=== PATIENT | female | born 1930 | race Caucasian/White ===

== ENCOUNTER 2017-11-10 20:19 | Inpatient (IN) | payer MEDICARE ==
--- NOTE | 2017-11-10 21:07 | RAD ---
CHEST ONE VIEW 11/10/17 HISTORY: Elevated troponin. COMPARISON: Radiograph of 11/02/17. FINDINGS: Chronic linear opacity is present as well as increased extra pleural density in the left hemithorax, similar. Findings are similar. Dense mitral annular calcifications. Cardiac silhouette is mildly enlarged. No pneumothorax. IMPRESSION: No significant change. POS: [facility]
[2017-11-10 23:33] LABS: Troponin I 0.042 ng/mL (< 0.028)
[2017-11-11 01:14] LABS: Bilirubin Negative (Negative); Blood, Urine Trace (Negative); Clarity CLEAR (Clear); Glucose, Urine (Dipstick) Negative (Negative); Leukocyte Negative (Negative); Nitrite Negative (Negative); Protein, Urine (Dipstick) Negative (Neg-Trace); Urobilinogen 0.2 mg/dL (0.2-1.0); pH, Urine 5.5 (5.0-9.0)
[2017-11-11 01:17] LABS: Bacteria/HPF None Seen HPF (None Seen); Hyaline Casts/LPF 0-3 HYALINE CAST LPF (0-3 Hyaline); RBC/HPF 0-3 HPF (0-3); Squamous Epithelial 0-3 HPF (0-3)
[2017-11-11 02:33] LABS: Troponin I 0.043 ng/mL (< 0.028)
[2017-11-11 05:34] LABS: Troponin I 0.047 ng/mL (< 0.028)
[2017-11-11] MEDS ORDERED: Meropenem 1 GM in Sodium Chloride 0.9% 100 ML IVPB SCH (10:00)
[2017-11-11] MEDS ORDERED: Sodium Chloride 0.9% 1,000 ML IV SCH (10:00)
[2017-11-11] MEDS ORDERED: Acetaminophen 325 MG TAB PO PRN (10:04)
[2017-11-11] MEDS ORDERED: MEROPENEM IVPB PRN (10:22)
[2017-11-11] MEDS: Dextrose 5 % And 0.9 % NaCl 1,000 ML IV SCH ×2 (11:37→21:07)
[2017-11-11] MEDS ORDERED: Aspirin 325 MG TAB PO SCH (13:30)
[2017-11-11 16:27] VITALS: BMI 22.1
[2017-11-11] MEDS ORDERED: Prevnar 13-Val Conj/PF 0.5 ML SYRINGE IM ONE (17:30)
[2017-11-11] MEDS: Meropenem 500 MG in Sodium Chloride 0.9% 100 ML IVPB SCH (21:05)
--- NOTE | 2017-11-11 21:13 | HP ---
PRIMARY CARE PHYSICIAN: Kinga Torres NP. CHIEF COMPLAINT: Generalized weakness. HISTORY OF PRESENT ILLNESS: Patient is a very pleasant 87-year-old female who lives alone, who prese nts to the hospital with complaints of worsening confusion and weakness. Patient's family is at the bedside states that last week, the patient was not being herself and some confusion was noted. So, t he patient was taken to [place] ER. At that time, her urine was checked and she was given a anyi t of Rocephin and was sent home with Levaquin antibiotics. Per family, patient's condition continued to progress. Patient has been falling more frequently than normal. Patient normally uses a walker or holds on to furniture around her home to walk; however, since last week, she has been falling more often and has been very weak to even get up to go to the bathroom. Family also mentioned that the p atient had a low grade fever of around 100. Denies any chills. Patient denies any fevers or chills. Denies any diarrhea or abdominal pain, any nausea or vomiting. PAST MEDICAL HISTORY: 1. Type 2 diabetes, on insulin. 2. Hypertension. 3. Glaucoma. 4. Hyperlipidemia. 5. Dementia. 6. Coronary artery disease status post coronary artery bypass graft. PAST SURGICAL HISTORY: Bypass in 2007, ORIF of the greater tuberosity in 2009, rotator cuff tear rep air in 2009. FAMILY HISTORY: According to her family member, her parents are , unknown cause. However, s he does have a sister who does not have any medical issues. SOCIAL HISTORY: The patient lives alone, has a lot of family support. Denies any alcohol, drug use or tobacco, smoking. ALLERGIES: She has no known drug allergies. MEDICATIONS: Unable to obtain since they do not have a list with them. PHYSICAL EXAMINATION: VITAL SIGNS: Temperature of 98.1, respirations of 16, pulse of 86, her blood pressure in the room wa s 98/66. GENERAL: She is awake, alert, oriented to self only. CARDIOVASCULAR: S1, S2 present. Regular rate and rhythm. No murmurs, rubs or gallops noted. LUNGS: Clear upon auscultation. No rhonchi or wheezes noted. ABDOMEN: Soft, nontender. Bowel sounds are present x2. Hepatomegaly and splenomegaly felt. EXTREMITIES: No lower extremity edema. Pedal pulses are present x2. SKIN: Warm to touch. NEUROLOGIC: Patient is awake, alert, oriented only to self. No focal neurological deficit noted. LABORATORY DATA: As the following: WBC is 4.1, hemoglobin of 11.2, hematocrit of 34.3, platelets of 167. Chemistry: She has sodium of 140, potassium of 4.4, BUN of 43, creatinine of 1.47. Troponins of 0.048 and 0.042. TSH is 0.914 and magnesium is 1.4. Patient did have a chest x-ray which indica екатерина no acute abnormalities. ASSESSMENT AND PLAN: The patient is a very pleasant 87-year-old female who presented to the hospital with complaints of generalized weakness and worsening confusion. 1. Sepsis. The patient is hypotensive. She is also leukopenic. Her urine culture from 11/02/2017 at [place] indicated E. coli which is ESBL positive and Levaquin is resistant to it. We will st art patient on meropenem. We will also start the patient on some gentle hydration. Per ER nurse, th e patient received 500 mL bolus of IV fluids. We will give another liter of normal saline. Blood cu ltures have already been drawn. We will also check an echocardiogram. 2. Acute kidney injury. The patient's baseline creatinine is always around normal at 0.97-1.04. Th is most likely is prerenal. We will continue IV hydration. We will also bladder scan patient to moses e sure that she does not have any residual urine left since patient is incontinent. 3. Elevated troponins. This could just be demand ischemia related. We will check an echocardiogram . The patient is not complaining of any chest pain. 4. Worsening confusion. The patient does have a baseline history of dementia, worsening confusion, most likely secondary to the urinary tract infection. 5. Diabetes. I will put the patient on sliding scale insulin and check Accu-Cheks a.c. and at bedti me. 6. Deep venous thrombosis prophylaxis. We will put patient on subcu heparin.
[2017-11-12 06:08] LABS: Anion Gap 6 mmol/L (10-20); BUN (Urea Nitrogen) 25 mg/dL (9.8-20.1); Calc. Creatinine Clearance 28 mL/min (70-130); Calcium 8.2 mg/dL (7.8-10.44); Carbon Dioxide 21 mmol/L (23-31); Chloride 111 mmol/L (98-107); Estimated GFR-MDRD 43; Glucose 235 mg/dL (83-110); Potassium 4.3 mmol/L (3.5-5.1); Sodium 134 mmol/L (136-145)
[2017-11-12 06:56] LABS: Hemoglobin 10.1 g/dL (12.0-16.0); Lymphocytes 55 % (21-51); MDiff Complete? YES; Mean Corpuscular HGB CONC 33.6 g/dL (32.0-36.0); Mean Corpuscular Hemoglobin 29.9 pg (27.0-31.0); Mean Corpuscular Volume 89.2 fl (81.0-99.0); Mean Platelet Volume 6.5 fL (7.4-10.4); Monocytes 6 % (0-10); Neutrophil 38 % (42-75); PLT Morphology Comment Appears Adequate; Platelet Count 135 thou/uL (130-400); RBC Distribution Width 12.2 % (11.5-14.5); RBC Morphology Normal; Reactive Lymphocytes 1 % (0-10); Red Blood Cell (RBC) Count 3.37 mill/uL (4.20-5.40); White Blood Cell (WBC) Count 4.6 thou/uL (4.8-10.8)
[2017-11-12] MEDS: Enoxaparin Sodium 30 MG/0.3 ML SYRINGE SC SCH (08:44)
[2017-11-12] MEDS: Sodium Chloride 0.9% 1,000 ML IV SCH (08:50)
[2017-11-12] MEDS: Dextrose 5 % And 0.9 % NaCl 1,000 ML IV SCH (08:52)
[2017-11-12] MEDS ORDERED: Insulin Glargine 5 UNITS in Pre-Filled Syringe 1 EACH SC SCH ×2 (09:00→21:00)
[2017-11-12] MEDS: Meropenem 500 MG in Sodium Chloride 0.9% 100 ML IVPB SCH (11:32)
[2017-11-12] MEDS: HumaLOG 300 UNITS/3 ML VIAL SC PRN (12:27)
--- NOTE | 2017-11-12 12:43 | PDOC.PN ---
- Subjective Encounter Start Date: 11/12/17 Encounter Start Time: 09:00 Subjective: pt up in bed more awake today - Objective Vital Signs & Weight: Vital Signs (12 hours) Temp Pulse Resp BP Pulse Ox 11/12/17 11:36 97.5 F L 68 16 142/65 H 98 11/12/17 08:00 97.1 F L 73 18 137/66 97 11/12/17 04:00 96.8 F L 62 17 139/66 97 Weight Admit Weight 117 lb Weight 117 lb 1.6 oz Result Diagrams: 11/12/17 05:41 11/12/17 05:41 Additional Labs: Accuchecks 11/12/17 11/12/17 11/11/17 12:09 06:20 21:09 POC Glucose 231 H 245 H 289 H 11/11/17 16:59 POC Glucose 218 H Dx/Plan - Plan 1) sepsis 2) uti 3) carl 4) dm type 2 plan: Pt's urine on 11/02 is esbl positive. pt on meropenem. ID consulted. pt's creatinine is improving. lantus bid added and moderate sliding scale added. PT to evaluate pt. * . Review of Systems - Review of Systems Eyes: negative: Pain, Vision Change, Conjunctivae Inflammation, Eyelid Inflammation, Redness, Other ENT: negative: Ear Pain, Ear Discharge, Nose Pain, Nose Discharge, Nose Congestion, Mouth Pain, Mouth Swelling, Throat Pain, Throat Swelling, Other Respiratory: negative: Cough, Dry, Shortness of Breath, Hemoptysis, SOB with Excertion, Pleuritic Pain, Sputum, Wheezing Cardiovascular: negative: chest pain, palpitations, orthopnea, paroxysmal nocturnal dyspnea, edema, light headedness, other Gastrointestinal: negative: Nausea, Vomiting, Abdominal Pain, Diarrhea, Constipation, Melena, Hematochezia, Other Genitourinary: negative: Dysuria, Frequency, Incontinence, Hematuria, Retention , Other Musculoskeletal: negative: Neck Pain, Shoulder Pain, Arm Pain, Back Pain, Hand Pain, Leg Pain, Foot Pain, Other - Medications/Allergies Allergies/Adverse Reactions: Allergies Allergy/AdvReac Type Severity Reaction Status Date / Time No Known Drug Allergies Allergy Verified 04/25/15 09:45 Medications: Current Medications Acetaminophen (Tylenol) 650 mg PO Q4H PRN PRN Reason: Headache/Fever or Pain Enoxaparin Sodium (Lovenox) 30 mg SC 0900 [facility] Last Admin: 11/12/17 08:44 Dose: 30 mg Insulin Glargine 5 units/ (Miscellaneous Medication) 0.05 mls @ 0 mls/hr SC QAM [facility] Last Admin: 11/12/17 08:44 Dose: 0.05 mls Insulin Glargine 5 units/ (Miscellaneous Medication) 0.05 mls @ 0 mls/hr SC HS [facility] Sodium Chloride (Normal Saline 0.9%) 1,000 mls @ 50 mls/hr IV .Q20H [facility] Last Admin: 11/12/17 08:50 Dose: 1,000 mls Meropenem 1 gm/ Sodium (Chloride) 100 mls @ 200 mls/hr IVPB 1200,2359 [facility] Insulin Human Lispro (Humalog) 0 units SC .MODERATE SLIDING SC PRN PRN Reason: Moderate Correctional Scale Last Admin: 11/12/17 12:27 Dose: 4 unit Miscellaneous Medication (Pharmacy To Dose) 1 each IVPB PRN PRN PRN Reason: Pharmacy to dose Sodium Chloride (Flush - Normal Saline) 10 ml IVF Q12HR [facility] Last Admin: 11/12/17 08:44 Dose: Not Given Sodium Chloride (Flush - Normal Saline) 10 ml IVF PRN PRN PRN Reason: Saline Flush
--- NOTE | 2017-11-12 16:03 | CT ---
CT THORAX WITHOUT IV CONTRAST CT ABDOMEN AND PELVIS WITHOUT IV CONTRAST: DATE: 11/12/17. HISTORY: Abnormal lung exam, normal chest x-ray. COMPARISON: None available. FINDINGS: CT THORAX: There are postsurgical changes related to CABG. Dense vascular calcifications are seen in the patterson ry arteries as well as involving the thoracic aorta. Dense calcifications are seen involving the vamsi ral valve annulus. There is a tiny amount of pleural thickening versus tiny pleural effusions dependently within the bre gs bilaterally with atelectasis present at each lung base. There does appear to be generalized volum e loss in the left hemithorax compared to the right. Lack of intravenous contrast limits evaluation of the vascular structures and the mediastinum. No de finite enlarged lymph nodes are seen by CT size criteria. There is deformity involving the left femoral head and neck region which may be related to a remote f racture and deformity. Area of sclerosis is seen involving the superomedial aspect of the humeral he ad which is nonspecific. On the axial images, there is a question of interdigitated margins consiste nt with lucent area centrally. This could potentially represent a large bone island, but on the mely nal images this does not have the appearance of a bone island. Osteonecrosis in this region cannot b e entirely excluded. CT ABDOMEN AND PELVIS: The liver, spleen, pancreas, bilateral adrenal glands, and kidneys as well as urinary bladder demonst rate a grossly normal nonenhanced CT appearance. There is a large coarse calcification seen involving the posterior aspect of the uterus measuring 3 c m likely attributable to calcified uterine fibroid. There is a small amount of moderate amount of retained fecal material seen throughout the colon sugge sting constipation. Loops of small bowel are normal in caliber. There is suggested thickening involving the region of the pylorus of the stomach which could be rela екатерина to peristalsis, but thickening related to ulcer cannot be entirely excluded. There is a small ro unded fat density focus seen in this area of apparent thickening which represent a small lipoma measu ring 1 cm. Dense vascular calcifications are seen in the abdominal aorta involving the iliac arteries. There is bi-lobed aneurysmal dilatation of the abdominal aorta with the greatest dimensions measuring 3.6 cm x 3.3 cm. Linear calcification is seen involving the infrarenal abdominal aorta which may represent either calcification secondary to an eccentric atherosclerotic plaque or calcification of aortic diss ection. The appendix is visualized and normal in caliber. No free fluid or fluid collection is seen in the abdomen or pelvis. No definite enlarged lymph nodes are seen by CT size criteria. A wedge-shaped compression fracture of the L1 vertebral body is visualized. The exact age of this fr acture is indeterminate. There is approximately 30-40% loss of height anteriorly. IMPRESSION: 1. Limited examination due to lack of intravenous contrast, but no definite acute findings are seen in the abdomen or pelvis. 2. Area of thickening in the region of the pylorus. This may be attributable to peristalsis, but th ickening secondary to other etiologies cannot be entirely excluded. Followup evaluation with either direct visualization or upper GI may be helpful for further evaluation of this area of thickening. I n the region of thickening, there is a small fat density structure measuring 1 cm which may represent a small lipoma. 3. Bi-lobed infrarenal abdominal aortic aneurysm with dense vascular calcification seen throughout t he thoracic and abdominal aorta as well as involving the coronary arteries. 4. Either peripheral calcification involving an eccentric plaque versus calcified aortic dissection involving the infrarenal abdominal aorta. 5. No renal or ureteral calculi are seen bilaterally. 6. Constipation. 7. Indeterminate age compression fracture of L1 vertebral body. 8. A tiny amount of pleural thickening versus pleural effusions dependent portions of the lungs bila terally. POS: [facility]
--- NOTE | 2017-11-12 20:53 | CON ---
DATE OF CONSULTATION: 11/12/2017 REASON FOR CONSULTATION: Change in mental status and possible urinary tract infection. HISTORY OF PRESENT ILLNESS: An 87-year-old who has a history of hypertension and type 2 diabetes mellitus. In March 2015, she was admitted with change in mental status. The patient had an MRI of the head, which was not remarkable. The change in mental status, resolved. During that visit, she had an E. coli retrieved from urine cultures. Urinalysis showed 21-50 WBCs. Her clinical findings were ascribed to a urinary tract infection and she was dismissed on ciprofloxacin, aspirin, Lipitor, metformin, losartan, and mirtazapine. In 2016, she presented with altered mental status and weakness. This time, she again was identified with positive urine culture with E. coli and Klebsiella pneumonia shabazz susceptible. Repeat urinalysis with 21-50 WBCs. The patient was discharged on Bactrim for 2 days. This time she presents with a confusional state again, on arrival to the emergency room, her review of systems was negative, although she denied any other symptoms. Her cognitive function is such that this finding somewhat questionable meaning. She suddenly denied urinary tract symptoms and not had any fever. Initial vital signs with a BP 130 /70, temperature 98, pulse 83, respirations 19. A chest x-ray with linear opacity, extrapleural density in the left hemithorax. INITIAL LABORATORY DATA: This time with a white cell count 4.6, hemoglobin 10.1 , MCV 89, platelets 135,000 with 38% neutrophils and 55% lymphocytes. Sodium 134, creatinine 1.18, chloride 111, BUN 25. Urinalysis with 4-6 WBCs. Urine culture from 11/02/2017 with E. coli which had an ESBL phenotype. The current urine culture thus far is no growth. She had been given levofloxacin and Rocephin in [place] ER about a week before this visit. Of note, the E. coli isolate was resistant to both of the antimicrobials administered. Currently, Ms. Newell is awake. She wants awake. She knows she is in the hospital in [place]. She did not know the year though, she thought it was 1987. She wants to go home. REVIEW OF SYSTEMS: Denies any headaches, visual symptoms, sore throat, aphasia , odynophagia, dysphagia, no dyspnea, cough or sputum production, no abdominal pain or diarrhea. No genitourinary symptoms, no joint symptoms. Again, the review of system accuracy is off limited value because of her cognitive issues. PAST MEDICAL HISTORY: Type 2 diabetes, hypertension, hyperlipidemia, dementia, coronary artery disease, recurrent positive urine cultures, which have been treated, although patient did not have symptoms other than change in mental status. PAST SURGICAL HISTORY: Bypass graft surgery, ORIF, rotator cuff repair. FAMILY HISTORY: Noncontributory. SOCIAL HISTORY: Lives alone with some family support. Never smoker. ALLERGIES: None. CURRENT MEDICATIONS: Tylenol, enoxaparin, insulin, meropenem. She has received meropenem started yesterday on admission. PHYSICAL EXAMINATION: VITAL SIGNS: Revealed T-max 97.5, blood pressure 140/65, pulse 68, respirations 16, and O2 sat 98%. SKIN: With no areas of skin breakdown. Peripheral IV access. No lymphadenopathy. HEENT: Ocular movements conjugate. Oral cavity with no abnormalities seen except for missing teeth. NECK: Supple, no jugular distention. LUNGS: Inspiratory crackles at the bases. HEART: S1, S2, regular rate. No S3, S4. ABDOMEN: Soft, without distention, no tenderness. EXTREMITIES: No joint inflammatory activity and pulses 1+ in dorsalis pedis. LABORATORY DATA: The latest labs demonstrate a white cell count as noted above as the only labs obtained thus far. ASSESSMENT: 1. Dementia. 2. Change in mental status. 3. Positive urine culture. DISCUSSION: It is not clear to me that the urinary findings are related to the patient's clinical manifestations. The mental status changes resolved promptly and patient this time has no WBCs in the urinalysis and urine culture thus far negative on arrival. I would advise discontinuation of antimicrobial therapy. She does have abnormal lung examination. Sometimes x-rays may miss the findings , we will order a CT of her chest without contrast and a CT of abdomen and pelvis stone protocol. Check a respiratory virus PCR panel. [facility]
[2017-11-12] MEDS ORDERED: Lorazepam 2 MG/ML VIAL IM SCH (22:30)
[2017-11-12] MEDS ORDERED: Meropenem 1 GM in Sodium Chloride 0.9% 100 ML IVPB SCH (23:59)
[2017-11-13] MEDS: Sodium Chloride 0.9% 1,000 ML IV SCH (07:47)
[2017-11-13] MEDS: Enoxaparin Sodium 30 MG/0.3 ML SYRINGE SC SCH (09:45)
[2017-11-13] MEDS ORDERED: Mirtazapine 15 MG TAB PO PRN (10:37)
[2017-11-13 10:49] LABS: Anion Gap 11 mmol/L (10-20); BUN (Urea Nitrogen) 15 mg/dL (9.8-20.1); Calc. Creatinine Clearance 32 mL/min (70-130); Calcium 9.7 mg/dL (7.8-10.44); Carbon Dioxide 24 mmol/L (23-31); Chloride 106 mmol/L (98-107); Estimated GFR-MDRD 52; Glucose 221 mg/dL (83-110); Magnesium 1.6 mg/dL (1.6-2.6); Potassium 4.2 mmol/L (3.5-5.1); Sodium 137 mmol/L (136-145)
[2017-11-13] MEDS: Insulin Glargine 10 UNITS in Pre-Filled Syringe 1 EACH SC SCH (13:33)
[2017-11-13] MEDS: Losartan 25 MG TAB PO SCH (13:34)
[2017-11-13] MEDS: Metoprolol Tartrate 25 MG TAB PO SCH (13:34)
--- NOTE | 2017-11-13 14:54 | PDOC.PN ---
- Subjective Encounter Start Date: 11/13/17 Encounter Start Time: 09:00 Subjective: pt up in bed very drowsy easily aroused - Objective Vital Signs & Weight: Vital Signs (12 hours) Temp Pulse Resp BP Pulse Ox 11/13/17 12:58 98.9 F 85 17 133/65 95 11/13/17 08:49 98.6 F 86 18 150/76 H 96 11/13/17 03:09 97.4 F L 92 20 179/89 H 97 Weight Admit Weight 117 lb Weight 112 lb 4.8 oz I&O: 11/12/17 11/13/17 11/14/17 06:59 06:59 06:59 Intake Total 1760 Balance 1760 Result Diagrams: 11/12/17 05:41 11/13/17 08:22 Additional Labs: Accuchecks 11/13/17 11/13/17 11/12/17 11:19 06:08 20:51 POC Glucose 192 H 229 H 270 H 11/12/17 16:46 POC Glucose 197 H Phys Exam - Physical Examination HEENT: PERRLA, moist MMs, sclera anicteric, TM's clear, oral pharynx no lesions , 2+ tonsils Neck: no nodes, no JVD, supple, full ROM Respiratory: no wheezing, no rales, no rhonchi, wheezing present, clear to auscultation bilateral Cardiovascular: RRR, no significant murmur, no rub, gallop, irregular Gastrointestinal: soft, non-tender, no distention, positive bowel sounds Deviation from normal: drowsy, arousable Dx/Plan - Plan 1) sepsis 2) elevated trops 3) dementia 4) dm type 2 5)carl resolved plan: Pt's urine on 11/02 is esbl positive. pt on meropenem. ID consulted. pt's creatinine is improving. lantus bid added and moderate sliding scale added. PT to evaluate pt. 11/13 pt's repeat cx on levaquin negative. pt had ct abd/pel ordered by ID no significant etiology of her weakness and worsening confusion. pt has significant calcification noted on her ct scan. possible cardiac cause of her weakness given her hx of CABG and mild elevated trops. Echo ordered but was cancelled by the tech since pt was not cooperative. I was not notified about this. Echo reordered today. cardiology also consulted. updated pt's daughter who wants pt to go to rehab. Pt will not need abx. bi lobed infrarenal aneurysm. will also consult palliative care. Pt most likely has worsening dementia will not be able to live alone. Review of Systems - Review of Systems Other: pt very drowsy - Medications/Allergies Allergies/Adverse Reactions: Allergies Allergy/AdvReac Type Severity Reaction Status Date / Time No Known Drug Allergies Allergy Verified 04/25/15 09:45 Medications: Current Medications Acetaminophen (Tylenol) 650 mg PO Q4H PRN PRN Reason: Headache/Fever or Pain Enoxaparin Sodium (Lovenox) 30 mg SC 0900 [facility] Last Admin: 11/13/17 09:45 Dose: 30 mg Insulin Glargine 10 units/ (Miscellaneous Medication) 0.1 mls @ 0 mls/hr SC BID [facility] Last Admin: 11/13/17 13:33 Dose: Not Given Insulin Human Lispro (Humalog) 0 units SC .MODERATE SLIDING SC PRN PRN Reason: Moderate Correctional Scale Last Admin: 11/12/17 12:27 Dose: 4 unit Losartan Potassium (Cozaar) 25 mg PO DAILY [facility] Last Admin: 11/13/17 13:34 Dose: Not Given Metoprolol Tartrate (Lopressor) 25 mg PO BID [facility] Last Admin: 11/13/17 13:34 Dose: Not Given Mirtazapine (Remeron) 15 mg PO HS PRN PRN Reason: Anxiety/Sleep/Spasm Quetiapine Fumarate (Seroquel) 25 mg PO HS PRN PRN Reason: Agitation Sodium Chloride (Flush - Normal Saline) 10 ml IVF Q12HR [facility] Last Admin: 11/13/17 09:45 Dose: 10 ml Sodium Chloride (Flush - Normal Saline) 10 ml IVF PRN PRN PRN Reason: Saline Flush
[2017-11-13] MEDS ORDERED: Mirtazapine 15 MG TAB PO SCH (21:00)
--- NOTE | 2017-11-14 01:35 | CON ---
Silke Curry, nurse practitioner of Dr. Mitchell who is a technology infusion specialist. ROOM: 259 DATE OF CONSULTATION: 11/13/2017 PRIMARY CARE PHYSICIAN: Kinga East NP. PRIMARY PROTOCOL OFFICER: Yana Mitchell MD REFERRING PHYSICIAN: Navya Rivera MD REASON FOR CARDIOLOGY CONSULTATION: Weakness and elevated troponin. HISTORY OF PRESENT ILLNESS: Ms. Newell is an 87-year-old female with a significant medica l history of coronary artery disease, status post coronary artery bypass graft x4 in 2007, hypertensi on, diabetes type 2, dementia, and frequent recurrent UTI. On this moment, the patient was feeling v dago drowsy and unable to follow commands or answer any questions because the patient was so agitated and the patient was given Ativan last night, which made the patient continued to have drowsiness arou nd this time. So, the patient's information was obtained from the patient's past medical records and from the nurse today. The patient was brought to the emergency department by the patient's daughter who noticed the patient is more confused than usual. The patient has a history of dementia; however , she is living by herself, taking care of herself. According to the daughter, the patient is gettin g weaker and confused over the couple weeks with frequent falls. The patient's UA was obtained, whic h shows trace blood and 4-6 count of wbc in the urine. Dr. Oh, infectious doctor consulted this p atient, which ruled out the patient urinary tract infection. However, the patient was very combative and not cooperative and last night, the patient was given Ativan and since then the patient was very drowsy. Prior to that, the patient was alert and oriented x3. According to daughter who is and taking care of the patient, she states that the patient has a history of chronic elevated tropon in, indeterminate troponin level. The patient underwent CT scan of the abdomen and pelvis, which anyi ws significant calcification of the abdominal aorta involving iliac arteries with bilateral lobe, inf rarenal abdominal aortic aneurysm, 3.6 cm x 3.3 cm. During the cardiology consult assessment, the pa tiearun was very drowsy, but the patient denied any chest pain or discomfort in her chest, shortness of breath, dizziness, lightheadedness, or any other cardiac complaints. The patient had an echocardiogram in 2015, which shows EF of 60-65%, [id number] aortic stenos is with gradient 64 mmHg systolic, valve area is approximately 1-1.2 cm and [id number] tricuspi d insufficiency with left atrial enlargement. The patient has a history of CABG x4 in 2007. The [facility] ient had a carotid Doppler in 2014, which shows no evidence of significant stenosis. The patient has frequent recurrent urinary tract infection. PAST MEDICAL HISTORY: 1. Coronary artery disease, status post coronary artery bypass graft x4 in 2007. 2. Hypertension. 3. Diabetes type 2. 4. Hyperlipidemia. 5. Glaucoma. 6. Dementia. PAST SURGICAL HISTORY: 1. CABG x4 in 2007. 2. ORIF in 2009. 3. Rotator cuff tear repair in 2009. FAMILY HISTORY: Significant CAD and lung cancer on the paternal side, and the patient has a sister w ho does not have any medical issues. SOCIAL HISTORY: The patient lives alone. Her daughter and son live very close to her street. Accor ding to the daughter's report, the patient does not take any alcohol, drug use or tobacco. ALLERGIES: No known drug allergies. MEDICATIONS: Remeron 15 mg once a day at night, metformin 500 mg twice a day, losartan (Cozaar) 25 m g once a day. REVIEW OF SYSTEMS: Unable to obtain from the patient due to the severe drowsiness. PHYSICAL EXAMINATION: VITAL SIGNS: Blood pressure 95/55, O2 sat 99% with room air, respiratory rate 18, pulse is 67 and si nus rhythm, temperature 97.0. GENERAL: Well developed, well nourished, and without any acute distress. HEENT: Head, normocephalic and atraumatic. Eyes, unable to assess due to the patient refused. ENT, oral and nasal mucosa moist without lesion, but she wears upper and bottom dentures. NECK: No JVD. Neck is supple and normal range of motion. LUNGS: Clear to auscultation bilaterally, but diminished at the bases. CARDIOVASCULAR: Regular rate and rhythm. Normal S1 and S2. There is no S3 or S4. There are signif icant murmurs to the left sternal borders and mitral valve area. There are 2+ pulses in the dorsalis pedis, popliteal and posterior tibial. Unable to check the femoral because the patient refused. No edema in the bilateral lower extremities. ABDOMEN: Soft and nontender or mass to palpate. Bowel sounds are very active. MUSCULOSKELETAL: The patient is able to move all extremities at this moment. SKIN: Warm and dry. No skin rash, lesion, or bruise noted, but dry skin in her bilateral lower extr emities. NEUROLOGIC: Before, the patient received Ativan last night, the patient was alert and oriented x3 pe r nurse, but she was very combative. EKG: A 12-lead EKG in the ER shows sinus rhythm with no ST segment change or T-wave inversion. LABORATORY DATA: WBC 4.6, hemoglobin 10.1, hematocrit 30.1, platelets 135. Sodium 137, potassium 4. 2, BUN 15, creatinine 1.01, glucose 221. Troponins 0.042, 0.043, 0.047. TSH 1.0805. Urinalysis anyi wing urine wbc's 4-6 and trace blood. ASSESSMENT AND PLAN: 1. Elevated indeterminate troponin level, which is possible demand ischemia or chronic indeterminate troponin. The patient denies chest pain or discomfort in her chest and the patient's 12-lead EKG in the ER and also telemetry records show no ST segment change or T-wave inversion. At this moment, ellen grande is on Lovenox 30 mg subcu once a day and she is on metoprolol 25 mg twice a day and losartan 25 onc e a day. We would like to continue to monitor the patient's condition at this moment. 2. Hypertension. The patient's blood pressure is stable with current medications. We would like to continue to monitor. 3. Coronary artery disease with history of coronary artery bypass graft x4 in 2007. The patient's c ondition is stable at this moment. We would like to continue to monitor on telemetry and also, we wo uld like to start baby aspirin for history of coronary artery disease. 4. Acute kidney insufficiency. The patient's kidney function is stable at this moment, we would lik e to continue to monitor. 5. Dementia. According to the patient's daughter's report, the patient's dementia is getting worse. Palliative care consult was ordered and possibly the patient is going to be transferred to custodial. 6. Chronic anemia. The patient's hemoglobin level is slightly worsened than normal. We would like to continue to monitor. Thank you very much for allowing the cardiology service to participate in care of this patient. We w ould like to follow and make further recommendation as appropriate.
[2017-11-14] MEDS: Insulin Glargine 10 UNITS in Pre-Filled Syringe 1 EACH SC SCH ×3 (04:30→21:48)
[2017-11-14] MEDS: Metoprolol Tartrate 25 MG TAB PO SCH ×3 (04:31→21:48)
[2017-11-14] MEDS: Enoxaparin Sodium 30 MG/0.3 ML SYRINGE SC SCH (09:45)
[2017-11-14] MEDS: Losartan 25 MG TAB PO SCH (09:48)
--- NOTE | 2017-11-14 11:14 | PDOC.PN ---
- Subjective Encounter Start Date: 11/14/17 Encounter Start Time: 07:40 Pt seen for followup re: hypertension. Pt states she feels better. - Objective MAR Reviewed: Yes Vital Signs & Weight: Vital Signs (12 hours) Temp Pulse Resp BP Pulse Ox 11/14/17 07:50 98.0 F 92 17 91/52 L 98 11/14/17 04:00 98.1 F 89 12 96/51 L Weight Admit Weight 117 lb Weight 108 lb 12.8 oz I&O: 11/13/17 11/14/17 11/15/17 06:59 06:59 06:59 Intake Total 1760 120 Balance 1760 120 Result Diagrams: 11/12/17 05:41 11/13/17 08:22 Additional Labs: Accuchecks 11/14/17 11/13/17 11/13/17 05:47 20:25 16:58 POC Glucose 211 H 125 H 136 H 11/13/17 11:19 POC Glucose 192 H EKG Reviewed by me: Yes (Tele: NSR) Phys Exam - Physical Examination Constitutional: NAD HEENT: moist MMs Neck: supple Respiratory: clear to auscultation bilateral Cardiovascular: RRR, no rub S1, S2 Gastrointestinal: soft Neurological: moves all 4 limbs Psychiatric: normal affect Dx/Plan (1) HTN (hypertension) Code(s): I10 - ESSENTIAL (PRIMARY) HYPERTENSION Status: Chronic Comment: Controlled, continue to monitor vital signs (2) Demand ischemia of myocardium Code(s): I24.8 - OTHER FORMS OF ACUTE ISCHEMIC HEART DISEASE Status: Acute Comment: cardiology following (3) Diabetes Code(s): E11.9 - TYPE 2 DIABETES MELLITUS WITHOUT COMPLICATIONS Status: Chronic Qualifiers: Diabetes mellitus type: type 2 Diabetes mellitus complication status: with unspecified complications Comment: continue accuchecks, insulin (4) Dyslipidemia Code(s): E78.5 - HYPERLIPIDEMIA, UNSPECIFIED Status: Chronic (5) Acute encephalopathy Code(s): G93.40 - ENCEPHALOPATHY, UNSPECIFIED Status: Resolved - Plan * . Consult GI re: pyloric thickening. Pt off of antibiotics now. Review of Systems - Review of Systems Constitutional: negative: fever, chills, sweats, weakness, malaise Respiratory: negative: Cough, Shortness of Breath, SOB with Excertion, Pleuritic Pain, Wheezing Cardiovascular: negative: chest pain, palpitations, orthopnea, paroxysmal nocturnal dyspnea, edema, light headedness - Medications/Allergies Allergies/Adverse Reactions: Allergies Allergy/AdvReac Type Severity Reaction Status Date / Time No Known Drug Allergies Allergy Verified 04/25/15 09:45 Medications: Current Medications Acetaminophen (Tylenol) 650 mg PO Q4H PRN PRN Reason: Headache/Fever or Pain Enoxaparin Sodium (Lovenox) 30 mg SC 0900 [facility] Last Admin: 11/14/17 09:45 Dose: 30 mg Insulin Glargine 10 units/ (Miscellaneous Medication) 0.1 mls @ 0 mls/hr SC BID [facility] Last Admin: 11/14/17 04:30 Dose: Not Given Insulin Human Lispro (Humalog) 0 units SC .MODERATE SLIDING SC PRN PRN Reason: Moderate Correctional Scale Last Admin: 11/12/17 12:27 Dose: 4 unit Losartan Potassium (Cozaar) 25 mg PO DAILY [facility] Last Admin: 11/14/17 09:48 Dose: Not Given Metoprolol Tartrate (Lopressor) 25 mg PO BID [facility] Last Admin: 11/14/17 09:48 Dose: Not Given Mirtazapine (Remeron) 15 mg PO HS PRN PRN Reason: Anxiety/Sleep/Spasm Quetiapine Fumarate (Seroquel) 25 mg PO HS PRN PRN Reason: Agitation Sodium Chloride (Flush - Normal Saline) 10 ml IVF Q12HR [facility] Last Admin: 11/14/17 09:48 Dose: 10 ml Sodium Chloride (Flush - Normal Saline) 10 ml IVF PRN PRN PRN Reason: Saline Flush
--- NOTE | 2017-11-14 14:21 | PDOC.CTH ---
<Silke Curry - Last Filed: 11/14/17 14:35> Cardiology Progress Note - Subjective The pt seen and examined. No overnight events. No cardiac complaints. She is more alart this AM. She expressed she would like to go home. - Objective Vital Signs Temp Pulse Resp BP Pulse Ox 11/14/17 12:00 97.9 F 83 18 128/76 98 11/14/17 07:50 98.0 F 92 17 91/52 L 98 11/14/17 04:00 98.1 F 89 12 96/51 L Admit Weight 117 lb Weight 108 lb 12.8 oz 11/13/17 11/14/17 11/15/17 06:59 06:59 06:59 Intake Total 1760 120 Balance 1760 120 - Physical Examination General/Neuro: alert & oriented x3 (name, place, and season) Lungs: CTA Heart: RRR Abdomen: soft Extremities: other: - Telemetry Telemetry Rhythm: SR 80s - Labs Result Diagrams: 11/12/17 05:41 11/13/17 08:22 Troponin/CKMB Troponin I 0.047 ng/mL (< 0.028) H 11/11/17 04:35 - Assessment/Plan 1. Indeterminate Trop with Hx of CAD and CABG x4 in 2007 - possible chronic elevated trop. No ECG changes, VS is stable; On BBlocker, ARE, and Lovenox, which will change to ASA at discharge. May start Statin when she is stable; cont. to monitor on tele 2. HTN - stable 3. Hyperlipidemia - Not on Statin; 4. DM type 2 - managed by PCP 5. Dementia - stable; the pt is more wake this AM. MAR reviewed Review of Systems - Review of Systems Constitutional: reports: weakness EENTM: reports: no symptoms reported Respiratory: reports: no symptoms reported Cardiac (ROS): reports: no symptoms reported ABD/GI: reports: no symptoms reported : reports: no symptoms reported Musculoskeletal: reports: no symptoms reported <Celena Mitchell - Last Filed: 11/14/17 22:03> Cardiology Progress Note - Objective Vital Signs Temp Pulse Resp BP Pulse Ox 11/14/17 16:58 91 17 113/59 L 98 11/14/17 12:00 97.9 F 83 18 128/76 98 Admit Weight 117 lb Weight 108 lb 12.8 oz 11/13/17 11/14/17 11/15/17 06:59 06:59 06:59 Intake Total 1760 120 960 Balance 1760 120 960 - Labs Result Diagrams: 11/12/17 05:41 11/13/17 08:22 Troponin/CKMB Troponin I 0.047 ng/mL (< 0.028) H 11/11/17 04:35 - Assessment/Plan Pt. seen and eval. by me. I agree with the A/P by the MOBILE DEVICE ENGINEER. We have discussed the plan.
--- NOTE | 2017-11-14 15:25 | ADD-CON ---
ADDENDUM DATE OF ADMISSION: 11/11/2017 DATE OF CONSULTATION: 11/13/2017 INDICATION FOR CONSULTATION: An 87-year-old female with indeterminate cardiac enzymes. Please refer to the notes already dictated by the nurse practitioner Silke. We have discussed this patient. I w antonyld agree with her assessment and plan on this patient. She is a very elderly 87-year-old female wh o recently was in the hospital with some weakness and has been noted to have a urinary tract infectio n. She was treated and then was released. She now returns again complaining of being lethargic, als o week, generalized weakness and not feeling well. She has presented again for evaluation and was no екатерина her cardiac enzymes were slightly elevated, but she also seemed to be more confused and she is be ing admitted for further evaluation. At this time, she certainly has been sleeping. She is arousabl e, however, is alert and is only oriented to herself during my evaluation, but otherwise did not appe ar to be in any significant distress at all. As far as her past medical history, social history, fam gasper history, review of systems, allergies, and medications, please refer to the notes dictated. PHYSICAL EXAMINATION: GENERAL: Reveals an elderly female who is in no acute distress at this time. She is afebrile, respi ratory rate is 18, heart is in the 80s, blood pressure is slightly decreased, but is now about 100/70 . HEENT: Shows head to be normocephalic, atraumatic. Carotid pulses are present. CHEST: Clear to auscultation. CARDIOVASCULAR: Reveals a regular rate and rhythm. There were no significant murmurs, heaves, thril ls, bruits or rubs. CHEST: Clear. ABDOMEN: Soft and nontender. Positive bowel sounds are present. EXTREMITIES: Show no clubbing, no cyanosis, no edema. Pedal pulses are present. NEUROLOGIC: The patient is alert and oriented to herself. She is arousable, but when I first arrive d she was sleeping. There were no gross focal motor deficits noted. IMPRESSION: 1. Elevated cardiac enzymes, which at this time is a chronic problem in this lady and does not appea r to be related to an acute cardiac event. 2. Decreased mental status changes most likely due to some in the form of dementia, but did not see any obvious sepsis at this time. I believe blood cultures and urine cultures are still pending. We will review these when they are available. 3. History of diabetes. This will be dealt with by the primary care service. At this time, should she have any cardiac changes. We would be more than happy to see her or continue to follow with her, but at this time, overall cardiac status appears to be stable.
--- NOTE | 2017-11-14 20:58 | CON ---
DATE OF CONSULTATION: 11/14/2017 REQUESTING PHYSICIAN: Dr. Lion. REASON FOR CONSULTATION: Abnormal CT scan of the stomach. HISTORY OF PRESENT ILLNESS: Ananya Newell is an 87-year-old woman with a history of diabetes, hypert ension, and coronary artery disease with CABG in 2007. She also does have mild dementia, but she is quite conversant with me today appears to understand her whole conversation and tells me that she moses es her own decisions. She was admitted to the hospital with acute altered mental status and weakness 3 days ago. The altered mental status quickly resolved to baseline. She has a history of recurrent urinary tract infections, but current urinalysis and urine culture are negative. Two days ago, she had a CT of the chest, abdomen, and pelvis and this demonstrated several findings including an infrar enal abdominal aortic aneurysm, but also incidentally demonstrated some pyloric thickening thought to be related to peristalsis versus possibly ulcer. There is also a 1 cm lipoma in that area. The pat ient reports to me that she is feeling well. She denies any abdominal pain, nausea, vomiting, or los s of appetite or any change in bowel habits. She has no prior history of peptic ulcer disease or any GI illness. She has never undergone any endoscopy. She declines any gastrointestinal procedures. REVIEW OF SYSTEMS: Full review of systems including constitutional, head, eyes, ears, nose, throat, GI, , cardiovascular, respiratory, musculoskeletal, and neurologic systems is negative except as no екатерина in the HPI. PAST MEDICAL HISTORY: Diabetes, hypertension, hyperlipidemia, coronary artery disease status post CA BG in 2007, dementia, recurrent UTIs, rotator cuff surgery in 2009. ALLERGIES: No known drug allergies. OUTPATIENT MEDICATIONS: Remeron, metformin, losartan. INPATIENT MEDICATIONS: Seroquel, Remeron, metoprolol, losartan, sliding scale insulin. FAMILY HISTORY: Father had lung cancer. SOCIAL HISTORY: No smoking, alcohol, or drug use. PHYSICAL EXAMINATION: VITAL SIGNS: Temperature 97.9, pulse 83, blood pressure 128/76, 98% oxygen saturation on room air. GENERAL: Elderly 87-year-old woman lying in bed comfortably, in no distress. MENTAL: She is alert and oriented to person and place. She can give detailed coherent answers regar ding her symptoms and also appears to understand our conversation including a discussion of risks and benefits. SKIN: No jaundice, no rashes were palpable. EYES: No scleral icterus. Extraocular movements intact. ENT: Mucous membranes moist, no oral lesions. LYMPH: No submandibular or supraclavicular lymphadenopathy. THYROID: Nontender to palpation. HEART: Regular rate and rhythm. LUNGS: Clear to auscultation bilaterally. ABDOMEN: Flat, bowel sounds present, soft and nontender to palpation throughout. EXTREMITIES: No peripheral edema. VESSELS: Radial pulses 2+ bilaterally. NEUROLOGICAL: Cranial nerves II-XII intact bilaterally. No focal deficits. LABORATORY STUDIES: Hemoglobin 10.1, WBC 4.6, platelets 135. Sedimentation rate 13, BUN 15, creatin ine 1.01, glucose 219, troponin 0.04. TSH 0.91, total bilirubin 0.5, alkaline phosphatase 59, AST 11 , ALT 7, albumin 3.8. Urine culture is negative. Blood cultures negative. IMAGING STUDIES: On 11/12/2017, CT of the chest, abdomen, and pelvis demonstrated multiple chronic f indings including an infrarenal abdominal aortic aneurysm. There is an area of thickening in the pyl orus, which was possibly related to peristalsis versus peptic ulcer, also a 1 cm lipoma in that area. RECOMMENDATIONS: 1. Abnormal CT scan of the stomach. 2. Chronic anemia. I have reviewed the results of the CT scan with the patient. I advised her that this may represent p eristalsis or possibly peptic ulcer disease, or even possibly a malignancy. On the other hand, she h as no gastrointestinal symptoms, and she flatly declines any endoscopic investigation. I believe she does understand the potential risk of missed diagnosis if we do not proceed with the study, and she still declines. I would honor this. GI will sign off at this time, but please call back if the wade ent were to change her mind or to develop overt gastrointestinal symptoms.
[2017-11-15] MEDS: Enoxaparin Sodium 30 MG/0.3 ML SYRINGE SC SCH (09:31)
[2017-11-15] MEDS: Losartan 25 MG TAB PO SCH (09:32)
[2017-11-15] MEDS: Metoprolol Tartrate 25 MG TAB PO SCH ×2 (09:33→20:45)
[2017-11-15] MEDS: Insulin Glargine 10 UNITS in Pre-Filled Syringe 1 EACH SC SCH ×2 (09:43→20:46)
--- NOTE | 2017-11-15 11:08 | PDOC.CTH ---
<Silke Curry - Last Filed: 11/15/17 11:06> Cardiology Progress Note - Subjective The pt seen and examined. No overnight events. No cardiac complaints. She is more alert this AM. She expressed she would like to go home. - Objective Vital Signs Temp Pulse Resp BP Pulse Ox 11/15/17 04:00 98.3 F 68 20 128/63 97 Admit Weight 117 lb Weight 109 lb 3 oz 11/14/17 11/15/17 11/16/17 06:59 06:59 06:59 Intake Total 120 1080 Balance 120 1080 - Physical Examination General/Neuro: alert & oriented x3 Neck: no JVD present Lungs: CTA Heart: RRR Abdomen: soft Extremities: other: (No edema) - Telemetry Telemetry Rhythm: SR, PACs, HR 70s - Labs Result Diagrams: 11/12/17 05:41 11/13/17 08:22 Troponin/CKMB Troponin I 0.047 ng/mL (< 0.028) H 11/11/17 04:35 - Assessment/Plan 1. Indeterminate Trop with Hx of CAD and CABG x4 in 2007 - possible chronic elevated trop. No ECG changes, VS is stable; On BBlocker, ARE, and Lovenox, which will change to ASA at discharge. May start Statin when she is stable; cont. to monitor on tele 2. HTN - stable 3. Hyperlipidemia - Not on Statin; 4. DM type 2 - managed by PCP 5. Dementia - stable; the pt is more wake this AM. MAR reviewed Review of Systems - Review of Systems Constitutional: reports: no symptoms reported EENTM: reports: no symptoms reported Respiratory: reports: no symptoms reported Cardiac (ROS): reports: no symptoms reported ABD/GI: reports: no symptoms reported : reports: no symptoms reported <Celena Mitchell - Last Filed: 11/15/17 22:56> Cardiology Progress Note - Objective Vital Signs Temp Pulse Resp BP Pulse Ox 11/15/17 20:10 98.3 F 69 14 130/66 95 11/15/17 16:02 98.4 F 77 18 94/51 L 96 11/15/17 11:27 98.3 F 76 18 119/64 98 Admit Weight 117 lb Weight 109 lb 3 oz 05/20/18 05/21/18 05/22/18 06:59 06:59 06:59 Intake Total 120 1080 120 Balance 120 1080 120 - Labs Result Diagrams: 11/12/17 05:41 11/13/17 08:22 Troponin/CKMB Troponin I 0.047 ng/mL (< 0.028) H 11/11/17 04:35 - Assessment/Plan Pt. seen and eval. I agree with the A/P by the COMPUTER HARDWARE ENGINEER. Chest clear, RRR
[2017-11-15] MEDS: HumaLOG 300 UNITS/3 ML VIAL SC PRN (13:16)
--- NOTE | 2017-11-15 15:02 | PDOC.PN ---
- Subjective Encounter Start Date: 11/15/17 Encounter Start Time: 07:00 Pt seen for followup re: hypertension. Reports feeling well, denies any chest pain or shortness of breath. No fevers or chills. No nausea or vomiting. - Objective MAR Reviewed: Yes Vital Signs & Weight: Vital Signs (12 hours) Temp Pulse Resp BP Pulse Ox 11/15/17 04:00 98.3 F 68 20 128/63 97 Weight Admit Weight 117 lb Weight 109 lb 3 oz I&O: 11/14/17 11/15/17 11/16/17 06:59 06:59 06:59 Intake Total 120 1080 Balance 120 1080 Result Diagrams: 11/12/17 05:41 11/13/17 08:22 Additional Labs: Accuchecks 11/15/17 11/15/17 11/14/17 11:20 06:18 21:19 POC Glucose 239 H 87 170 H 11/14/17 16:42 POC Glucose 152 H EKG Reviewed by me: Yes (Tele: NSR) Phys Exam - Physical Examination Constitutional: NAD HEENT: moist MMs Neck: supple Respiratory: clear to auscultation bilateral Cardiovascular: RRR Gastrointestinal: soft Neurological: moves all 4 limbs Psychiatric: normal affect Skin: no rash Dx/Plan (1) HTN (hypertension) Code(s): I10 - ESSENTIAL (PRIMARY) HYPERTENSION Status: Chronic Comment: Controlled, continue to monitor vital signs and titrate antihypertensives as needed (2) Demand ischemia of myocardium Code(s): I24.8 - OTHER FORMS OF ACUTE ISCHEMIC HEART DISEASE Status: Acute Comment: cardiology following, pt to be started on aspirin at the time of discharge (3) Diabetes Code(s): E11.9 - TYPE 2 DIABETES MELLITUS WITHOUT COMPLICATIONS Status: Chronic Qualifiers: Diabetes mellitus type: type 2 Diabetes mellitus complication status: with unspecified complications Comment: on accuchecks and insulin (4) Dyslipidemia Code(s): E78.5 - HYPERLIPIDEMIA, UNSPECIFIED Status: Chronic (5) Acute encephalopathy Code(s): G93.40 - ENCEPHALOPATHY, UNSPECIFIED Status: Resolved - Plan * . Review of Systems - Review of Systems Constitutional: negative: fever, chills, sweats, weakness, malaise Cardiovascular: negative: chest pain, palpitations, orthopnea, paroxysmal nocturnal dyspnea, edema, light headedness - Medications/Allergies Allergies/Adverse Reactions: Allergies Allergy/AdvReac Type Severity Reaction Status Date / Time No Known Drug Allergies Allergy Verified 04/25/15 09:45 Medications: Current Medications Acetaminophen (Tylenol) 650 mg PO Q4H PRN PRN Reason: Headache/Fever or Pain Enoxaparin Sodium (Lovenox) 30 mg SC 0900 [facility] Last Admin: 11/15/17 09:31 Dose: 30 mg Insulin Glargine 10 units/ (Miscellaneous Medication) 0.1 mls @ 0 mls/hr SC BID [facility] Last Admin: 11/15/17 09:43 Dose: Not Given Insulin Human Lispro (Humalog) 0 units SC .MODERATE SLIDING SC PRN PRN Reason: Moderate Correctional Scale Last Admin: 11/15/17 13:16 Dose: 4 unit Losartan Potassium (Cozaar) 25 mg PO DAILY [facility] Last Admin: 11/15/17 09:32 Dose: 25 mg Metformin HCl (Glucophage) 500 mg PO BID-[facility] Metoprolol Tartrate (Lopressor) 25 mg PO BID [facility] Last Admin: 11/15/17 09:33 Dose: 25 mg Mirtazapine (Remeron) 15 mg PO HS PRN PRN Reason: Anxiety/Sleep/Spasm Quetiapine Fumarate (Seroquel) 25 mg PO HS PRN PRN Reason: Agitation Sodium Chloride (Flush - Normal Saline) 10 ml IVF Q12HR [facility] Last Admin: 11/15/17 09:33 Dose: 10 ml Sodium Chloride (Flush - Normal Saline) 10 ml IVF PRN PRN PRN Reason: Saline Flush
[2017-11-15] MEDS: metFORMIN 500 MG TAB PO SCH (17:59)
[2017-11-16] MEDS: Enoxaparin Sodium 30 MG/0.3 ML SYRINGE SC SCH (08:54)
[2017-11-16] MEDS: metFORMIN 500 MG TAB PO SCH (08:54)
[2017-11-16] MEDS: Losartan 25 MG TAB PO SCH (08:54)
[2017-11-16] MEDS: Metoprolol Tartrate 25 MG TAB PO SCH (08:54)
[2017-11-16] MEDS: Insulin Glargine 10 UNITS in Pre-Filled Syringe 1 EACH SC SCH (08:55)
--- NOTE | 2017-11-16 13:17 | DIS ---
DATE OF ADMISSION: 11/11/2017 DATE OF DISCHARGE: 11/16/2017 PRIMARY CARE PROVIDER: Kinga Torres NP DISCHARGE DIAGNOSES: 1. Sepsis. 2. Urinary tract infection. 3. Acute encephalopathy. 4. Abnormal troponin level. CONSULTATIONS DURING THIS HOSPITALIZATION: Cardiology, Dr. Mitchell; Infectious Diseases, Dr. Oh; and Gastroenterology, Dr. Metcalf. CONDITION OF PATIENT ON THE DAY OF DISCHARGE: Stable. I assessed Ms. Newell on the day of discharg e. She denies any chest pain or shortness of breath. Vital signs are stable. S1 and S2 are heard, regular. Lungs are clear to auscultation bilaterally. DISCHARGE MEDICATIONS: Aspirin 81 mg daily, atorvastatin 10 mg at bedtime, Cozaar 25 mg daily, metfo rmin 500 mg 2 times a day, Lopressor 25 mg 2 times a day, mirtazapine 15 mg at bedtime, and Tylenol 6 50 mg every 4 hours as needed. HOSPITAL COURSE: Ms. Newell is a pleasant 87-year-old lady, who was admitted to [facility] on 11/11/2017 for acute encephalopathy and sepsis. Her urine studies are suggestive o f an infection. She was treated with intravenous antibiotics. Final urine culture did not show any growth. She was seen by Infectious Diseases service as well. She had an indeterminate troponin I. She was evaluated by Cardiology Service. She was continued on her ARB. She is being started on statin as well as a beta connie. A 2D echocardiogram showed left ventricular ejection fraction of 50%-55%, E/A flow reversal suggestive of diastolic dysfunction, norm al right ventricular size and function, moderately dilated left atrium, normal right atrium size, vamsi ral regurgitation, moderate thickening of posterior leaflet of mitral valve, moderate aortic stenosis with valve area of 1.4 square cm, mild aortic regurgitation, and mild tricuspid regurgitation. She also had dilatation of aortic root. She also had a CT scan of the chest, abdomen, and pelvis, which was a limited examination due to lack of intravenous contrast, but there were no definite acute findings in the abdomen or pelvis. She duffy d area of thickening in the region of pylorus. She was seen by Gastroenterology Service and offered EGD, but she did not wish to have an EGD. The thickening may be attributable to peristalsis, but oth er etiologies cannot be entirely excluded. She also has bilobed infrarenal abdominal aortic aneurysm with dense vascular calcification seen throughout the thoracic and abdominal aorta as well as involv ing the coronary arteries. She also has either peripheral calcification involving an eccentric plaqu e or calcified aortic dissection involving the infrarenal abdominal aorta. She had a tiny amount of pleural thickening versus pleural effusions in dependent portions of the lungs bilaterally. She continued to improve during this hospitalization. She is being discharged home with home health. Many thanks for allowing me to participate in your patient's care. Please feel free to contact me wi th any questions or concerns. DISCHARGE DESTINATION: Home. TOTAL AMOUNT OF TIME SPENT COORDINATING THIS DISCHARGE: 33 minutes. ADDENDUM: (Dictated 11/16/2017 at 1603.) After discussion with case management and patient's family, patient was referred to the [facility] for halfway. She is being discharged to [facility].
[2017-11-16 17:29] VITALS: BP 158/75; TEMP 98.4
== END 2017-11-16 16:24 | disposition home or self-care (01) | DRG 871 ==
LOC: ERS 20:19 → ERHOLD 23:30 → OBSVTOIN 11-11 10:04 → 2NO 11-11 15:58
PROVIDERS: ADMIT Internal Medicine; ATTEND Internal Medicine
DX: A41.9 Sepsis, unspecified organism (principal); G93.40 Encephalopathy, unspecified; N17.9 Acute kidney failure, unspecified; I24.8 Other forms of acute ischemic heart disease; N39.0 Urinary tract infection, site not specified; E11.9 Type 2 diabetes mellitus without complications; I10 Essential (primary) hypertension; Z95.5 Presence of coronary angioplasty implant and graft; Z95.1 Presence of aortocoronary bypass graft; H40.9 Unspecified glaucoma; E78.5 Hyperlipidemia, unspecified; F03.90 Unspecified dementia, unspecified severity, without behavioral disturbance, psychotic disturbance, mood disturbance, and anxiety; I25.10 Atherosclerotic heart disease of native coronary artery without angina pectoris; I95.9 Hypotension, unspecified; Z79.899 Other long term (current) drug therapy; Z79.84 Long term (current) use of oral hypoglycemic drugs; D64.9 Anemia, unspecified
CPT/HCPCS: 36415; 36416; 51701; 71045; 71250; 74177; 80048; 81003; 81015; 83735; 84443; 84484; 85025; 85652; 87086; 90471; 90670; 93005; 93306; 96365; A4216; A4353; G0009; G8978-GP-CL; G8979-GP-CL; G8980-GP-CL; G8987-GO-CK; G8988-GO-CI; J1580; J1650; J2060; J2185; J3475; J7050

== ENCOUNTER 2017-12-15 11:59 | Inpatient (IN) | payer MEDICARE ==
[2017-12-15 13:08] LABS: Bilirubin Negative (Negative); Blood, Urine Trace (Negative); Clarity TURBID (Clear); Glucose, Urine (Dipstick) Negative (Negative); Leukocyte Large (Negative); Nitrite Positive (Negative); Protein, Urine (Dipstick) 30 mg/dL (Neg-Trace); Specific Gravity, Urine 1.016 (1.002-1.036); Urobilinogen 0.2 mg/dL (0.2-1.0)
[2017-12-15 13:09] LABS: Bacteria/HPF 4+ HPF (None Seen); RBC/HPF 0-3 HPF (0-3); Squamous Epithelial None Seen HPF (0-3)
[2017-12-15 13:14] LABS: Pathc Cast-AUWi Flag 5.84 (0-2.49)
[2017-12-15 13:29] LABS: CKMB 2.2 ng/mL (0-6.6)
[2017-12-15 13:29] LABS: Hyaline Casts/LPF 0-3 HYALINE CAST LPF (0-3 Hyaline); Manual Microscopic Reviewed? No Path Casts Seen
[2017-12-15] MEDS ORDERED: Acetaminophen 650 MG Suppository PR PRN (13:41)
[2017-12-15] MEDS ORDERED: Acetaminophen 325 MG TAB PO PRN (13:41)
[2017-12-15] MEDS ORDERED: Bisacodyl 5 MG TAB PO PRN (13:41)
[2017-12-15] MEDS ORDERED: Meropenem 1 GM in Sodium Chloride 0.9% 100 ML IVPB SCH (14:00)
[2017-12-15] MEDS ORDERED: MEROPENEM 1 GM/50 ML 1 GM in Premix Bag 1 BAG IVPB SCH (14:00)
[2017-12-15] MEDS ORDERED: Dextrose 50% Abboject 50 ML SYRINGE SLOW IVP PRN (16:59)
[2017-12-15] MEDS ORDERED: Dextrose 5% in Water 1,000 ML IV PRN (16:59)
[2017-12-15 17:30] VITALS: BMI 20.4
[2017-12-15 17:47] LABS: Troponin I 0.371 ng/mL (< 0.028)
[2017-12-15] MEDS: Sodium Chloride 0.9% 1,000 ML IV SCH (18:25)
--- NOTE | 2017-12-15 19:05 | HP ---
PRIMARY CARE PROVIDER: Kinga Torres NP CHIEF COMPLAINT: Altered mental status. HISTORY OF PRESENT ILLNESS: Ms. Newell is a pleasant 87-year-old lady who was seen at [facility] following transfer from [facility] on 12/15/2017. Patient herself is unable t o provide any history. She kept reciting parts of Lord's Prayer, but did not answer any questions. Review of systems could not be completed. Collateral history was obtained from the patient's daughte r and medical power of ip attorney, Cherry Castanon over the telephone as well as review of medical records and discussion with the emergency room physician. She was hospitalized at this facility from of this year for sepsis, urinary tract infection, ac petrona encephalopathy and abnormal troponin level. She was discharged to [facility] for care home. Patient's family reports that at [facility], patient "was not herself." She was disruptive and had a bad attitude. She tried to attack staff at [facility]. Family had to change her, and she had diaper rash. She was also not taking her medic ations and her family members had find pills hidden under her bed, her wheelchair. She was also conf used. She was able to recognize her children, but she did not recognize her grandchildren. At the t treva of discharge, the attending physician, Dr. Edmondson was unhappy with the discharge plan because patient lived by herself. However, family members got discharged to because they had cameras in the house and family members live around her. She was discharged home yesterday. At home, her family members noted that her urine was foul smellin g. Today morning, her family member watched over the camera says she left the kitchen to go to the b athroom. When she did not come back to the kitchen area in 5 minutes, her daughter went to check on her. She was sitting in an area between the kitchen and the bathroom. She had reportedly fallen, bu t no history of head trauma. She was staring around. She was therefore taken to the emergency room at [facility] and subsequently transferred to [facility]. Family member also reports that she has been reciting the Lord's Prayer since this morning. REVIEW OF SYSTEMS: Could not be completed secondary to patient's altered mental status. PAST MEDICAL HISTORY: Insulin-dependent diabetes type 2, hypertension, glaucoma, dyslipidemia, demen tia, coronary artery disease, status post coronary artery bypass graft. PAST SURGICAL HISTORY: Coronary artery bypass surgery in 2008, ORIF of the greater tuberosity in 201 0, rotator cuff tear repair in 2009. FAMILY HISTORY: Her parents are from unknown causes. She has a sister who does not have an y medical problems. SOCIAL HISTORY: The patient lives alone. Several family members live close to her. No history of t obacco use, alcohol use or recreational drug use. ALLERGIES: No known drug allergies. CURRENT MEDICATIONS: Lisinopril 10 mg daily, and metformin 500 mg 2 times a day. CODE STATUS: I discussed her code status. Her medical power of ip attorney reports that it is okay to do CPR and to deliver electric shocks. They are not agreeable to intubation. PHYSICAL EXAMINATION: GENERAL: Ms. Newell is awake, not responding. VITAL SIGNS: Blood pressure is 130/59, pulse is 74. She is breathing at rate of 18, and saturating 96% on room air. She is afebrile. EYES: No scleral icterus. No conjunctival pallor. ENT: Dry mucosal membranes, no oropharyngeal erythema or exudates. NECK: Supple, nontender, normal range of movement, trachea is midline. RESPIRATORY: Accessory muscles of breathing are not active. Chest wall movements are symmetric bila terally. LUNGS: Clear to auscultation without wheeze, rhonchi or crepitations. CARDIOVASCULAR: S1 and S2 are heard, regular. Peripheral pulses palpable. No carotid bruit, no per icardial rub. ABDOMEN: Soft, nontender, bowel sounds are heard, no hepatomegaly, no splenomegaly. NEUROLOGIC: Full neurologic examination was not possible secondary to the patient's noncooperation. No facial droop. Deep tendon reflexes are 2+, plantar reflexes downgoing bilaterally. MUSCULOSKELETAL: The patient is moving all four extremities. SKIN: No rashes or subcutaneous nodules. LYMPHATIC: No cervical lymphadenopathy. PSYCHIATRIC: Unable to assess mood, affect or orientation to person, place or time. LABORATORY DATA: Ms. Newell's labs and investigations were reviewed. I reviewed her electrocardiog cyn, which shows normal sinus rhythm, no ST changes to suggest an acute coronary syndrome. I also re viewed her noncontrast CT scan of the brain, which does not show any acute stroke or bleed. She also had CT scan of the cervical spine, which did not show any acute osseous abnormality of the cervical spine. She has normal white count, normocytic anemia with hemoglobin 11.1, normal platelet count, no rmal potassium, decreased sodium of 135, normal blood urea nitrogen, elevated creatinine of 1.20, las t known creatinine 1.01 on 11/13/2017, normal magnesium, normal total bilirubin, normal AST, normal A LT, normal alkaline phosphatase and urinalysis that is positive for nitrite and large amount of leuko cyte esterase. ASSESSMENT AND PLAN: Ms. Newell is a pleasant 87-year-old lady who was seen at [facility] on 12/15/2017. Her problem list includes: 1. Acute encephalopathy: Most likely secondary to urinary tract infection, although other etiologie s cannot be ruled out at this time. 2. Urinary tract infection. Her urinalysis is suggestive of urinary tract infection. She has recei rodrigo a dose of Rocephin. However, in the past, her urine cultures through Escherichia coli and Klebsi reena pneumoniae. Escherichia coli was resistant to most of the cephalosporins, but sensitive to marcus penem and nitrofurantoin. I will start her on meropenem. Klebsiella was pansensitive. 3. Indeterminate troponin I: Ms. Newell has indeterminate troponin I of 0.280 at 12:59 hours, tren ding up from 0.147 at 8:52 hours today. I will continue to trend her troponins and monitor her on te lemetry. I should note that she had elevated troponins in the past as well, although today's levels are higher than in the past. We will start her on aspirin for now and trend troponins. 4. Acute renal insufficiency: Most likely secondary to dehydration, will provide intravenous fluids and recheck her creatinine. 5. Diabetes mellitus. Start Accu-Cheks, insulin sliding scale. 6. Dyslipidemia: Continue home medications once clarified. Many thanks for allowing me to participate in your patient's care. Please feel free to contact me wi th any questions or concerns. LEVEL OF RISK: High. LEVEL OF COMPLEXITY: High.
[2017-12-15 19:28] LABS: Critical Call Chem Troponin I RESULT DECREASING
[2017-12-15] MEDS: MEROPENEM 1 GM/50 ML 1 GM in Premix Bag 1 BAG IVPB SCH (20:58)
[2017-12-16] MEDS: MEROPENEM 1 GM/50 ML 1 GM in Premix Bag 1 BAG IVPB SCH ×3 (03:19→15:46)
[2017-12-16] MEDS ORDERED: hydrALAZINE 20 MG/ML VIAL SLOW IVP PRN (03:42)
[2017-12-16] MEDS: Sodium Chloride 0.9% 1,000 ML IV SCH ×3 (04:03→17:21)
[2017-12-16 05:34] LABS: #Eosinphils 0.1 thou/uL (0.0-0.7); #Lymphocytes 1.5 thou/uL (1.20-3.40); #Monocytes 0.5 thou/uL (0.11-0.59); #Neutrophils 2.6 thou/uL (1.40-6.50); %Basophils 0.6 % (0.0-1.0); %Eosinophils 1.7 % (0.0-10.0); %Lymphocytes 32.5 % (21.0-51.0); %Neutrophils 55.1 % (42.0-75.0); Hemoglobin 10.6 g/dL (12.0-16.0); Mean Corpuscular Hemoglobin 30.4 pg (27.0-31.0); Mean Corpuscular Volume 89.4 fL (78.0-98.0); Platelet Count 160 thou/uL (130-400); RBC Distribution Width 12.3 % (11.5-14.5); White Blood Cell (WBC) Count 4.7 thou/uL (4.8-10.8)
[2017-12-16 05:46] LABS: Anion Gap 13 mmol/L (10-20); BUN (Urea Nitrogen) 14 mg/dL (9.8-20.1); Calc. Creatinine Clearance 29 mL/min (70-130); Calcium 9.5 mg/dL (7.8-10.44); Carbon Dioxide 23 mmol/L (23-31); Chloride 103 mmol/L (98-107); Estimated GFR-MDRD 52; Glucose 154 mg/dL (83-110); Potassium 4.5 mmol/L (3.5-5.1); Sodium 134 mmol/L (136-145)
[2017-12-16] MEDS ORDERED: Enoxaparin Sodium 40 MG/0.4 ML SYRINGE SC SCH (09:00)
[2017-12-16] MEDS: Enoxaparin Sodium 30 MG/0.3 ML SYRINGE SC SCH (09:30)
[2017-12-16] MEDS: Aspirin 325 mg Enteric Coated Tablet PO SCH (09:31)
--- NOTE | 2017-12-16 14:49 | PDOC.PN ---
- Subjective Encounter Start Date: 12/16/17 Encounter Start Time: 09:00 Pt seen for followup re: UTI. Answering questions but not reliably, unable to complete ROS. Denies chest pain, shortness of breath, fevers or chills. - Objective MAR Reviewed: Yes Vital Signs & Weight: Vital Signs (12 hours) Temp Pulse Resp BP Pulse Ox 12/16/17 12:12 97.9 F 72 18 155/70 H 97 Result Diagrams: 12/16/17 04:55 12/16/17 04:55 Additional Labs: Accuchecks 12/16/17 10:48 POC Glucose 163 H EKG Reviewed by me: Yes (Tele: NSR) Phys Exam - Physical Examination Constitutional: NAD HEENT: moist MMs, sclera anicteric, oral pharynx no lesions, 2+ tonsils Neck: no nodes, no JVD, supple, full ROM Respiratory: no wheezing, no rales, no rhonchi, clear to auscultation bilateral Cardiovascular: RRR, no rub S1, S2 Gastrointestinal: soft, non-tender, no distention, positive bowel sounds Neurological: moves all 4 limbs Psychiatric: normal affect Deviation from normal: Oriented to person only, not to place or time Dx/Plan (1) UTI (urinary tract infection) Status: Acute Comment: continue IV meropenem, await urine cultures (2) Acute encephalopathy Code(s): G93.40 - ENCEPHALOPATHY, UNSPECIFIED Status: Acute Comment: Improving (3) Elevated troponin I level Code(s): R74.8 - ABNORMAL LEVELS OF OTHER SERUM ENZYMES Status: Acute Comment: demand ischemia vs. NSTEMI vs. due to infection (4) Diabetes Code(s): E11.9 - TYPE 2 DIABETES MELLITUS WITHOUT COMPLICATIONS Status: Chronic Qualifiers: Diabetes mellitus type: type 2 Diabetes mellitus complication status: with unspecified complications Comment: continue accuchecks and insulin (5) Dyslipidemia Code(s): E78.5 - HYPERLIPIDEMIA, UNSPECIFIED Status: Chronic (6) HTN (hypertension) Code(s): I10 - ESSENTIAL (PRIMARY) HYPERTENSION Status: Chronic Comment: monitor vital signs and titrate antihypertensives as needed - Plan * . Review of Systems - Medications/Allergies Allergies/Adverse Reactions: Allergies Allergy/AdvReac Type Severity Reaction Status Date / Time No Known Drug Allergies Allergy Verified 04/25/15 09:45 Medications: Current Medications Acetaminophen (Tylenol) 650 mg PO Q4H PRN PRN Reason: Headache/Fever or Pain Acetaminophen (Tylenol) 650 mg OR Q4H PRN PRN Reason: Headache/Fever or Pain Aspirin (Ecotrin) 325 mg PO DAILY [facility] Last Admin: 12/16/17 09:31 Dose: 325 mg Bisacodyl (Dulcolax) 10 mg PO DAILYPRN PRN PRN Reason: Constipation Dextrose/Water (Dextrose 50%) 25 gm SLOW IVP PRN PRN PRN Reason: Hypoglycemia Enoxaparin Sodium (Lovenox) 30 mg SC 0900 [facility] Last Admin: 12/16/17 09:30 Dose: Not Given Glucagon (Glucagon) 1 mg IM PRN PRN PRN Reason: Hypoglycemia Hydralazine HCl (Apresoline) 10 mg SLOW IVP Q6H PRN PRN Reason: SBP > 180 Sodium Chloride (Normal Saline 0.9%) 1,000 mls @ 70 mls/hr IV .[id number] [facility] Last Admin: 12/16/17 09:33 Dose: 1,000 mls Dextrose/Water (D5w) 1,000 mls @ 0 mls/hr IV .Q0M PRN; As Directed PRN Reason: Hypoglycemia Meropenem 1 gm/ Device 50 mls @ 100 mls/hr IVPB 0400,1600 [facility] Insulin Human Lispro (Humalog) 0 units SC .MILD SLIDING SCALE PRN PRN Reason: Mild Correctional Scale
--- NOTE | 2017-12-16 23:21 | CON ---
DATE OF CONSULTATION: 12/16/2017 HISTORY: Ananya Neewll is an 87-year-old white female who was evaluated by Dr. Mitchell 1 month ago. She has history of CABG x4 apparently in 2007 (when asked when she had bypass, she said one month ago), hypertension, diabetes, dementia, frequent UTIs. She apparently has longstanding history of chronically elevated troponin I's and in her last admission, this was also the case. Echocardiogram during that admission revealed ejection fraction of 50%-55% with evidence of diastolic dysfunction, moderate left atrial enlargement, moderate mitral regurgitation, mitral annular calcification, moderate thickening of the posterior leaflet of the mitral valve, mild aortic regurgitation, thickening of the aortic valve leaflets, moderate aortic stenosis with a valve area of 1.4 cm2 , mild tricuspid regurgitation. She was also treated for UTI during that admission. After the last admission, she apparently went to jail in [place] , but was very disruptive and would not take her medications. Apparently, the family eventually took her home the day prior to this admission. The family had placed cameras in her house and she was observed to walk out of the kitchen to the bathroom, but not come back. The daughter went to check on her and found that she had fallen. She was taken to [facility] and then transferred here. PAST MEDICAL HISTORY: Hypertension, coronary artery disease, hypercholesterolemia, dementia, diabetes. PAST SURGICAL HISTORY: CABG, ORIF in 2009, rotator cuff tear repair in 2009. MEDICATIONS: Lisinopril 10 daily, metformin 500 mg b.i.d. ALLERGIES: None. SOCIAL HISTORY: She does not smoke or drink. She lives alone. FAMILY HISTORY: Unremarkable. REVIEW OF SYSTEMS: Unobtainable with her dementia. PHYSICAL EXAMINATION: VITAL SIGNS: Blood pressure 166/79, pulse 74. HEENT: PERRL. NECK: Supple. CHEST: Clear. CARDIAC: S1, S2 are normal without any S3 or S4. There was a 2/6 systolic ejection murmur heard throughout the precordium. ABDOMEN: Normal bowel sounds without tenderness, organomegaly. EXTREMITIES: Revealed no clubbing, cyanosis, or edema. NEUROLOGIC: Grossly intact; however, the patient is disoriented. LABORATORY DATA: EKG revealed normal sinus rhythm with evidence of septal infarction. White count 4700, hemoglobin 10.6, hematocrit 31.3, platelets 160, 000. Sodium 134, potassium 4.5, chloride 103, carbon dioxide 23, BUN 14, creatinine 1.01. Troponin I is 0.371. She has chronically elevated troponin I' s from all of her previous admissions; however, this is somewhat higher. Urinalysis revealed greater than 50 wbc's, 3+ bacteria. Preliminary urine culture is growing E. coli. IMPRESSION: 1. Chronically elevated troponin I, although her values on this admission were somewhat higher. She has not complained of any chest pain and this probably represents demand ischemia from her urinary tract infection. 2. Escherichia coli urinary tract infection. 3. Dementia. 4. Status post coronary artery bypass graft. 5. Mild aortic stenosis. 6. Hypertension. 7. History of hypercholesterolemia. RECOMMENDATIONS: Without EKG changes and no symptoms, I would not further evaluate this in this elderly demented lady. Her urinary tract infection is being treated. It certainly sounds as if she may need to be in a senior care; however, apparently this did not go well when she was discharged 1 month ago and sent to a jail facility. ROBERT
[2017-12-17] MEDS: MEROPENEM 1 GM/50 ML 1 GM in Premix Bag 1 BAG IVPB SCH ×2 (03:37→16:29)
[2017-12-17] MEDS: Sodium Chloride 0.9% 1,000 ML IV SCH ×2 (03:38→16:31)
[2017-12-17 04:53] LABS: Anion Gap 12 mmol/L (10-20); BUN (Urea Nitrogen) 17 mg/dL (9.8-20.1); Calc. Creatinine Clearance 29 mL/min (70-130); Calcium 9.2 mg/dL (7.8-10.44); Carbon Dioxide 20 mmol/L (23-31); Chloride 107 mmol/L (98-107); Estimated GFR-MDRD 52; Glucose 152 mg/dL (83-110); Potassium 3.9 mmol/L (3.5-5.1); Sodium 135 mmol/L (136-145)
[2017-12-17 05:59] LABS: Band 1 % (5-11); Eosinophils 3 % (0-10); Hemoglobin 10.6 g/dL (12.0-16.0); Lymphocytes 55 % (21-51); MDiff Complete? YES; Mean Corpuscular HGB CONC 34.2 g/dL (32.0-36.0); Mean Corpuscular Hemoglobin 30.2 pg (27.0-31.0); Mean Corpuscular Volume 88.4 fL (78.0-98.0); Mean Platelet Volume 6.7 fL (7.4-10.4); Monocytes 5 % (0-10); Neutrophil 36 % (42-75); Platelet Count 165 thou/uL (130-400); RBC Distribution Width 12.4 % (11.5-14.5); Red Blood Cell (RBC) Count 3.51 mill/uL (4.20-5.40); White Blood Cell (WBC) Count 3.5 thou/uL (4.8-10.8)
[2017-12-17] MEDS: Aspirin 325 mg Enteric Coated Tablet PO SCH (08:16)
[2017-12-17] MEDS: Enoxaparin Sodium 30 MG/0.3 ML SYRINGE SC SCH (08:17)
[2017-12-17] MEDS: HumaLOG 300 UNITS/3 ML VIAL SC PRN (12:24)
--- NOTE | 2017-12-17 16:22 | PDOC.PN ---
- Subjective Encounter Start Date: 12/17/17 Encounter Start Time: 08:00 Pt seen for followup re: UTI. More alert and answerign questions, denies chest pain, shortness of breath, fevers or chills. - Objective MAR Reviewed: Yes Vital Signs & Weight: Vital Signs (12 hours) Temp Pulse Resp BP Pulse Ox 12/17/17 07:55 98.2 F 78 18 96 12/17/17 07:50 98.2 F 78 18 180/81 H 96 Weight Weight 102 lb 6.4 oz I&O: 12/16/17 12/17/17 12/18/17 06:59 06:59 06:59 Intake Total 800 Balance 800 Result Diagrams: 12/17/17 04:02 12/17/17 04:02 Additional Labs: Accuchecks 12/17/17 12/17/17 12/16/17 10:48 06:14 21:05 POC Glucose 271 H 137 H 242 H 12/16/17 16:47 POC Glucose 123 H EKG Reviewed by me: Yes (Tele: sinus tachycardia) Phys Exam - Physical Examination Constitutional: NAD HEENT: moist MMs, sclera anicteric, oral pharynx no lesions, 2+ tonsils Neck: no nodes, no JVD, supple, full ROM Respiratory: no wheezing, no rales, no rhonchi, clear to auscultation bilateral Cardiovascular: RRR, no rub S1, S2 Gastrointestinal: soft, non-tender, no distention, positive bowel sounds Musculoskeletal: no edema Neurological: moves all 4 limbs Psychiatric: normal affect Deviation from normal: Oriented to person only, not to place or time Dx/Plan (1) UTI (urinary tract infection) Status: Acute Comment: continue IV meropenem, switch to nitrofurantoin at the time of discharge (2) Acute encephalopathy Code(s): G93.40 - ENCEPHALOPATHY, UNSPECIFIED Status: Acute Comment: Improving, pt will likely need placement at the time of discharge (lives alone at home but has family nearby and cameras in house) (3) Elevated troponin I level Code(s): R74.8 - ABNORMAL LEVELS OF OTHER SERUM ENZYMES Status: Acute Comment: likely due to demand ischemia (4) Diabetes Code(s): E11.9 - TYPE 2 DIABETES MELLITUS WITHOUT COMPLICATIONS Status: Chronic Qualifiers: Diabetes mellitus type: type 2 Diabetes mellitus complication status: with unspecified complications Comment: continue accuchecks and insulin (5) Dyslipidemia Code(s): E78.5 - HYPERLIPIDEMIA, UNSPECIFIED Status: Chronic (6) HTN (hypertension) Code(s): I10 - ESSENTIAL (PRIMARY) HYPERTENSION Status: Chronic Comment: titrate antihypertensives as needed - Plan continue antibiotics * . Review of Systems - Review of Systems Constitutional: negative: fever, chills, sweats, weakness, malaise Respiratory: negative: Cough, Shortness of Breath, SOB with Excertion, Pleuritic Pain, Wheezing Cardiovascular: negative: chest pain, palpitations, orthopnea, paroxysmal nocturnal dyspnea, edema, light headedness Gastrointestinal: negative: Nausea, Vomiting, Abdominal Pain, Diarrhea, Constipation, Melena, Hematochezia Genitourinary: negative: Dysuria, Frequency, Incontinence, Hematuria, Retention Skin: negative: Rash, Lesions, Michael, Bruising - Medications/Allergies Allergies/Adverse Reactions: Allergies Allergy/AdvReac Type Severity Reaction Status Date / Time No Known Drug Allergies Allergy Verified 04/25/15 09:45 Medications: Current Medications Acetaminophen (Tylenol) 650 mg PO Q4H PRN PRN Reason: Headache/Fever or Pain Acetaminophen (Tylenol) 650 mg TN Q4H PRN PRN Reason: Headache/Fever or Pain Aspirin (Ecotrin) 325 mg PO DAILY [facility] Last Admin: 12/17/17 08:16 Dose: 325 mg Bisacodyl (Dulcolax) 10 mg PO DAILYPRN PRN PRN Reason: Constipation Dextrose/Water (Dextrose 50%) 25 gm SLOW IVP PRN PRN PRN Reason: Hypoglycemia Enoxaparin Sodium (Lovenox) 30 mg SC 0900 [facility] Last Admin: 12/17/17 08:17 Dose: 30 mg Glucagon (Glucagon) 1 mg IM PRN PRN PRN Reason: Hypoglycemia Hydralazine HCl (Apresoline) 10 mg SLOW IVP Q6H PRN PRN Reason: SBP > 180 Last Admin: 12/17/17 08:17 Dose: 10 mg Sodium Chloride (Normal Saline 0.9%) 1,000 mls @ 70 mls/hr IV .[id number] [facility] Last Admin: 12/17/17 03:38 Dose: 1,000 mls Dextrose/Water (D5w) 1,000 mls @ 0 mls/hr IV .Q0M PRN; As Directed PRN Reason: Hypoglycemia Meropenem 1 gm/ Device 50 mls @ 100 mls/hr IVPB 0400,1600 [facility] Last Admin: 12/17/17 03:37 Dose: 50 mls Insulin Human Lispro (Humalog) 0 units SC .MILD SLIDING SCALE PRN PRN Reason: Mild Correctional Scale Last Admin: 12/17/17 12:24 Dose: 4 unit
[2017-12-18] MEDS: Sodium Chloride 0.9% 1,000 ML IV SCH ×2 (00:17→12:04)
[2017-12-18] MEDS: MEROPENEM 1 GM/50 ML 1 GM in Premix Bag 1 BAG IVPB SCH ×2 (04:00→16:14)
[2017-12-18] MEDS: Aspirin 325 mg Enteric Coated Tablet PO SCH (08:40)
[2017-12-18] MEDS: Enoxaparin Sodium 30 MG/0.3 ML SYRINGE SC SCH (08:40)
--- NOTE | 2017-12-18 14:50 | PDOC.PN ---
- Subjective Encounter Start Date: 12/18/17 Encounter Start Time: 08:40 Pt seen for followup re: UTI. Denies chest pain, shortness of breath, fevers or chills. Answering questions well. - Objective MAR Reviewed: Yes Vital Signs & Weight: Vital Signs (12 hours) Temp Pulse Resp BP BP Pulse Ox 12/18/17 11:55 98.2 F 71 16 132/66 96 12/18/17 07:49 98.7 F 74 16 97 12/18/17 07:46 98.7 F 74 16 170/76 H 97 12/18/17 04:06 99.1 F 71 160/72 H 96 Weight Weight 102 lb 6.4 oz I&O: 12/17/17 12/18/17 12/19/17 06:59 06:59 06:59 Intake Total 800 820 Balance 800 820 Result Diagrams: 12/17/17 04:02 12/17/17 04:02 Additional Labs: Accuchecks 12/18/17 12/18/17 12/17/17 11:05 05:51 20:42 POC Glucose 180 H 142 H 164 H 12/17/17 16:39 POC Glucose 102 EKG Reviewed by me: Yes (Tele: NSR) Phys Exam - Physical Examination Constitutional: NAD HEENT: moist MMs, sclera anicteric, oral pharynx no lesions, 2+ tonsils Neck: no nodes, no JVD, supple, full ROM Respiratory: no wheezing, no rales, no rhonchi, clear to auscultation bilateral Cardiovascular: RRR, no rub S1, S2 Gastrointestinal: soft, non-tender, no distention, positive bowel sounds Neurological: moves all 4 limbs Psychiatric: normal affect Deviation from normal: oriented to person only, not to time or place Dx/Plan (1) UTI (urinary tract infection) Status: Acute Comment: continue IV meropenem (nitrofurantoin at time of discharge) (2) Elevated troponin I level Code(s): R74.8 - ABNORMAL LEVELS OF OTHER SERUM ENZYMES Status: Acute Comment: likely due to demand ischemia, pt continues to deny any chest pain (3) Diabetes Code(s): E11.9 - TYPE 2 DIABETES MELLITUS WITHOUT COMPLICATIONS Status: Chronic Qualifiers: Diabetes mellitus type: type 2 Diabetes mellitus complication status: with unspecified complications Comment: on accuchecks and insulin sliding scale (4) HTN (hypertension) Code(s): I10 - ESSENTIAL (PRIMARY) HYPERTENSION Status: Chronic Comment: Monitor vital signs, titrate antihypertensives as needed (5) Dyslipidemia Code(s): E78.5 - HYPERLIPIDEMIA, UNSPECIFIED Status: Chronic (6) Acute encephalopathy Code(s): G93.40 - ENCEPHALOPATHY, UNSPECIFIED Status: Resolved Comment: pt will likely need placement at the time of discharge (lives alone at home but has family nearby and cameras in house) - Plan * . Review of Systems - Review of Systems Constitutional: negative: fever, chills, sweats, weakness, malaise Respiratory: negative: Cough, Shortness of Breath, SOB with Excertion, Pleuritic Pain, Wheezing Cardiovascular: negative: chest pain, palpitations, orthopnea, paroxysmal nocturnal dyspnea, edema, light headedness Musculoskeletal: negative: Neck Pain, Shoulder Pain, Arm Pain, Back Pain, Hand Pain, Leg Pain, Foot Pain Skin: negative: Rash, Lesions, Michael, Bruising Neurological: negative: Weakness, Numbness, Incoordination, Change in Speech, Confusion, Seizures - Medications/Allergies Allergies/Adverse Reactions: Allergies Allergy/AdvReac Type Severity Reaction Status Date / Time No Known Drug Allergies Allergy Verified 04/25/15 09:45 Medications: Current Medications Acetaminophen (Tylenol) 650 mg PO Q4H PRN PRN Reason: Headache/Fever or Pain Acetaminophen (Tylenol) 650 mg MT Q4H PRN PRN Reason: Headache/Fever or Pain Aspirin (Ecotrin) 325 mg PO DAILY [facility] Last Admin: 12/18/17 08:40 Dose: 325 mg Bisacodyl (Dulcolax) 10 mg PO DAILYPRN PRN PRN Reason: Constipation Dextrose/Water (Dextrose 50%) 25 gm SLOW IVP PRN PRN PRN Reason: Hypoglycemia Enoxaparin Sodium (Lovenox) 30 mg SC 0900 [facility] Last Admin: 12/18/17 08:40 Dose: 30 mg Glucagon (Glucagon) 1 mg IM PRN PRN PRN Reason: Hypoglycemia Hydralazine HCl (Apresoline) 10 mg SLOW IVP Q6H PRN PRN Reason: SBP > 180 Last Admin: 12/17/17 08:17 Dose: 10 mg Sodium Chloride (Normal Saline 0.9%) 1,000 mls @ 70 mls/hr IV .[id number] [facility] Last Admin: 12/18/17 12:04 Dose: 1,000 mls Dextrose/Water (D5w) 1,000 mls @ 0 mls/hr IV .Q0M PRN; As Directed PRN Reason: Hypoglycemia Meropenem 1 gm/ Device 50 mls @ 100 mls/hr IVPB 0400,1600 [facility] Last Admin: 12/18/17 04:00 Dose: 50 mls Insulin Human Lispro (Humalog) 0 units SC .MILD SLIDING SCALE PRN PRN Reason: Mild Correctional Scale Last Admin: 12/17/17 12:24 Dose: 4 unit
[2017-12-19] MEDS: Sodium Chloride 0.9% 1,000 ML IV SCH ×2 (02:19→17:49)
[2017-12-19] MEDS: MEROPENEM 1 GM/50 ML 1 GM in Premix Bag 1 BAG IVPB SCH (03:50)
[2017-12-19] MEDS: Aspirin 325 mg Enteric Coated Tablet PO SCH (08:35)
[2017-12-19] MEDS: Enoxaparin Sodium 30 MG/0.3 ML SYRINGE SC SCH (08:35)
[2017-12-19 11:08] LABS: #Eosinphils 0.1 thou/uL (0.0-0.7); #Lymphocytes 1.7 thou/uL (1.20-3.40); #Monocytes 0.4 thou/uL (0.11-0.59); #Neutrophils 1.4 thou/uL (1.40-6.50); %Basophils 1.1 % (0.0-1.0); %Eosinophils 2.5 % (0.0-10.0); %Lymphocytes 47.4 % (21.0-51.0); %Monocytes 10.3 % (0.0-10.0); %Neutrophils 38.8 % (42.0-75.0); Hemoglobin 11.3 g/dL (12.0-16.0); Mean Corpuscular HGB CONC 34.2 g/dL (32.0-36.0); Mean Corpuscular Hemoglobin 30.3 pg (27.0-31.0); Mean Corpuscular Volume 88.9 fL (78.0-98.0); Mean Platelet Volume 6.6 fL (7.4-10.4); Platelet Count 170 thou/uL (130-400); RBC Distribution Width 12.5 % (11.5-14.5); Red Blood Cell (RBC) Count 3.72 mill/uL (4.20-5.40); White Blood Cell (WBC) Count 3.7 thou/uL (4.8-10.8)
[2017-12-19] MEDS: HumaLOG 300 UNITS/3 ML VIAL SC PRN ×2 (11:27→17:56)
[2017-12-19 11:31] LABS: ALT (SGPT) 7 U/L (8-55); AST (SGOT) 9 U/L (5-34); Albumin 3.6 g/dL (3.4-4.8); Alkaline Phosphatase 71 U/L (40-150); Anion Gap 11 mmol/L (10-20); BUN (Urea Nitrogen) 13 mg/dL (9.8-20.1); Bilirubin, Total 0.4 mg/dL (0.2-1.2); Calc. Creatinine Clearance 32 mL/min (70-130); Calcium 9.7 mg/dL (7.8-10.44); Carbon Dioxide 25 mmol/L (23-31); Chloride 106 mmol/L (98-107); Estimated GFR-MDRD 58; Globulin 2.6 g/dL (2.4-3.5); Glucose 229 mg/dL (83-110); Magnesium 1.6 mg/dL (1.6-2.6); Phosphorus 2.1 mg/dL (2.3-4.7); Protein, Total 6.2 g/dL (6.0-8.3); Sodium 138 mmol/L (136-145)
--- NOTE | 2017-12-19 20:23 | CON ---
DATE OF CONSULTATION: 12/19/2017 REASON FOR CONSULTATION: Change in mental status, concern regarding possible urinary infection. HISTORY OF PRESENT ILLNESS: An 87-year-old, known to me from recent admission when she presented with a history of hypertension, type 2 diabetes, dementia, and recurrent episodes of change in mental status. In 03/2015, she had this similar presentation with E. coli retrieved from urine cultures. She was dismissed on ciprofloxacin in 08/2016. She presented with weakness, altered mental status again with a positive E. coli and Klebsiella pneumonia, shabazz susceptible urine culture. She was discharged on Bactrim and then on 2017 presented with severe confusional state. At that time, patient denied any urinary tract symptoms, had not had any fever. White cell count was normal without a left shift. The urine culture from 11/02/2017 showed the E. coli with a positive ESBL profile. Urine culture from 11/01/2017 was no growth at 48 hours. At that time, we felt that the mental status changes were not secondary to the urinary findings, recommended against treating that finding. This time she presents with a history of being disrupted after being transferred to [facility], been aggressive towards the staff at the [facility]. She also developed a diaper rash and was refusing to take her medications. Kept her pills hidden under her back, probably from paranoid ideation. Family asked to have the patient transferred back home. She basically was sent back home by herself and family members set up cameras in the house to assist with monitoring her behavior. Evidently at home, the family members felt that the urine had foul odor in the morning. They noticed that she was not visible in the cameras for 5 minutes. The daughter went to check on her and she was sitting in an area between the kitchen and bathroom and reportedly had fallen, staring around. She brought down to the emergency room in [place] and transferred to [facility]. On arrival, blood pressure 130/59, pulse 74, breathing at 18 times a minute. She was afebrile. The exam was fairly unremarkable and she was not cooperating with the neurological examination deep tendon reflexes were normal. She was moving all extremities. The initial labs with a white cell count 4.7, hemoglobin 10.6, platelets 160 with normal differential. Chemistry was unremarkable except for glucose 229, phosphorus 2.1. Liver profile normal. Urinalysis with greater than 50 WBCs, too numerous to count. The last imaging study of the urinary tract was in 11/12/2017 and it showed no evidence of obstruction and no evidence of calculi in the renal collective system. Currently, Ms. Newell is awake. She knows she is at [facility]. She did not know the date. She did follow commands little bit of confabulation, but for the most part, she was cooperative. Denied headaches, visual symptoms, sore throat, odynophagia, dysphagia, no dyspnea or chest pain, no abdominal pain. Denied any dysuria or other urinary symptoms, no joint symptoms. 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 SOCIAL HISTORY: She had been living alone intermittently at rehabilitation. She has monitoring systems in the house. Never a never smoker. ALLERGIES: None. CURRENT MEDICATIONS: Tylenol, Ecotrin, Dulcolax, dextrose, meropenem. PHYSICAL EXAMINATION: VITAL SIGNS: T-max 99.6, currently 98.7; blood pressure 170/74; pulse 76; respirations 18; O2 saturation 97%. GENERAL: Appears in no distress. SKIN: Shows a peripheral IV access. No areas of skin breakdown. The patient is voiding spontaneously. No lymphadenopathy. HEENT: Ocular movements conjugate. Oral cavity normal. Dentures in the upper maxilla. NECK: Supple. LUNGS: With symmetric clear breath sounds. HEART: S1, S2, regular rate. No S3, S4. ABDOMEN: Soft, not distended or tender. No ascites. No bladder distention. EXTREMITIES: No joint inflammatory activity. She is able to move extremities. Pulses 1+ dorsalis pedis. NEUROLOGIC: She is awake, oriented to time, self, but does not know the date. Difficulty with memory. LABORATORY DATA: Labs have been reviewed above. The latest white cell count 3.7, hemoglobin 11.3, platelets 170,000. Creatinine 0.92. ASSESSMENT: 1. Dementia. 2. Coronary artery disease. 3. 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 4. Behavioral abnormalities with episodes of fall. DISCUSSION: Again, we do not have unequivocal evidence of an inflammatory process. I believe her behavioral abnormalities are related to her dementia plus recurrent falls. I do not believe that we can ascribe the changes to the urinary findings. We would recommend discontinuation of antimicrobial therapy. Check postvoid residual. MTDD
--- NOTE | 2017-12-19 23:24 | PDOC.PN ---
- Subjective Encounter Start Date: 12/19/17 Encounter Start Time: 15:00 Patient seen and examined for UTI/Encephalopathy. No new complaints. No overnight events - Objective MAR Reviewed: Yes Vital Signs & Weight: Vital Signs (12 hours) Temp Pulse Resp BP BP Pulse Ox 12/19/17 20:00 98.5 F 83 16 12/19/17 19:40 98.5 F 83 16 174/82 H 100 12/19/17 16:52 98.4 F 96 18 161/73 H 97 12/19/17 11:26 98.7 F 76 18 173/74 H 97 Weight Weight 102 lb 6.4 oz I&O: 12/18/17 12/19/17 12/20/17 06:59 06:59 06:59 Intake Total 820 Balance 820 Result Diagrams: 12/19/17 10:57 12/19/17 10:57 Additional Labs: Accuchecks 12/19/17 12/19/17 12/19/17 20:46 17:23 10:59 POC Glucose 156 H 226 H 218 H 12/19/17 05:58 POC Glucose 158 H EKG Reviewed by me: Yes (Tele SR) Phys Exam - Physical Examination Constitutional: NAD Respiratory: no wheezing, no rhonchi Cardiovascular: RRR, no rub Gastrointestinal: soft, non-tender, positive bowel sounds Musculoskeletal: no edema Neurological: moves all 4 limbs Dx/Plan (1) Acute encephalopathy Code(s): G93.40 - ENCEPHALOPATHY, UNSPECIFIED Status: Resolved Comment: improving (2) UTI (urinary tract infection) Status: Acute Comment: continue IV meropenem (nitrofurantoin at time of discharge) (3) DM2 (diabetes mellitus, type 2) Status: Chronic Qualifiers: Chronic kidney disease stage: stage 3 (moderate) (4) Elevated troponin I level Code(s): R74.8 - ABNORMAL LEVELS OF OTHER SERUM ENZYMES Status: Acute Comment: likely due to demand ischemia (5) HTN (hypertension) Code(s): I10 - ESSENTIAL (PRIMARY) HYPERTENSION Status: Chronic (6) Hypophosphatemia Code(s): E83.39 - OTHER DISORDERS OF PHOSPHORUS METABOLISM Status: Acute - Plan DVT proph w/lovenox, DVT proph w/SCDs Cont Meropenem, Consult ID due to recurrent ESBL E coli UTI -: Replace Phosphorus -: AM labs -: Cont to monitor -: Cont ASA, Resume Losartan and Remeron Review of Systems - Review of Systems Respiratory: negative: Cough, Dry, Shortness of Breath, Hemoptysis, SOB with Excertion, Pleuritic Pain, Sputum, Wheezing Cardiovascular: negative: chest pain, palpitations, orthopnea, paroxysmal nocturnal dyspnea, edema, light headedness, other - Medications/Allergies Allergies/Adverse Reactions: Allergies Allergy/AdvReac Type Severity Reaction Status Date / Time No Known Drug Allergies Allergy Verified 04/25/15 09:45 Medications: Current Medications Acetaminophen (Tylenol) 650 mg PO Q4H PRN PRN Reason: Headache/Fever or Pain Acetaminophen (Tylenol) 650 mg IN Q4H PRN PRN Reason: Headache/Fever or Pain Aspirin (Ecotrin) 325 mg PO DAILY [facility] Last Admin: 12/19/17 08:35 Dose: 325 mg Bisacodyl (Dulcolax) 10 mg PO DAILYPRN PRN PRN Reason: Constipation Dextrose/Water (Dextrose 50%) 25 gm SLOW IVP PRN PRN PRN Reason: Hypoglycemia Enoxaparin Sodium (Lovenox) 30 mg SC 0900 [facility] Last Admin: 12/19/17 08:35 Dose: 30 mg Glucagon (Glucagon) 1 mg IM PRN PRN PRN Reason: Hypoglycemia Hydralazine HCl (Apresoline) 10 mg SLOW IVP Q6H PRN PRN Reason: SBP > 180 Last Admin: 12/17/17 08:17 Dose: 10 mg Sodium Chloride (Normal Saline 0.9%) 1,000 mls @ 70 mls/hr IV .[id number] [facility] Last Admin: 12/19/17 17:49 Dose: 1,000 mls Dextrose/Water (D5w) 1,000 mls @ 0 mls/hr IV .Q0M PRN; As Directed PRN Reason: Hypoglycemia Insulin Human Lispro (Humalog) 0 units SC .MILD SLIDING SCALE PRN PRN Reason: Mild Correctional Scale Last Admin: 12/19/17 17:56 Dose: 3 unit
[2017-12-20] MEDS: Enoxaparin Sodium 30 MG/0.3 ML SYRINGE SC SCH (08:24)
[2017-12-20] MEDS: Losartan 25 MG TAB PO SCH (08:24)
[2017-12-20] MEDS: K-Phos Neutral 250 MG TAB PO SCH ×4 (08:24→16:36)
[2017-12-20] MEDS: Aspirin 81 mg Enteric Coated Tablet PO SCH (08:24)
[2017-12-20] MEDS: Mirtazapine 15 MG TAB PO SCH (19:36)
--- NOTE | 2017-12-20 22:42 | PDOC.PN ---
- Subjective Encounter Start Date: 12/20/17 Encounter Start Time: 17:00 Patient seen and examined for UTI/Encephalopathy. No new complaints. No overnight events - Objective MAR Reviewed: Yes Vital Signs & Weight: Vital Signs (12 hours) Temp Pulse Pulse Pulse Resp BP BP 12/20/17 20:00 98.8 F 75 15 12/20/17 19:49 98.8 F 75 15 12/20/17 16:20 97.9 F 84 18 12/20/17 12:08 76 75 152/71 H 178/84 H 12/20/17 11:54 98.2 F 73 16 BP BP Pulse Ox Pulse Ox 12/20/17 20:00 12/20/17 19:49 138/77 96 12/20/17 16:20 168/89 H 95 12/20/17 12:08 98 12/20/17 11:54 152/71 H 98 Weight Weight 101 lb 11.2 oz I&O: 12/19/17 12/20/17 12/21/17 06:59 06:59 06:59 Intake Total 840 920 Balance 840 920 Result Diagrams: 12/21/17 03:24 12/21/17 03:24 Additional Labs: Accuchecks 12/20/17 12/20/17 12/20/17 20:52 16:48 10:35 POC Glucose 172 H 156 H 246 H 12/20/17 06:18 POC Glucose 154 H EKG Reviewed by me: Yes (Tele SR) Phys Exam - Physical Examination Constitutional: NAD Respiratory: no wheezing, no rhonchi Cardiovascular: RRR, no rub Gastrointestinal: soft, non-tender, positive bowel sounds Musculoskeletal: no edema Dx/Plan (1) Acute encephalopathy Code(s): G93.40 - ENCEPHALOPATHY, UNSPECIFIED Comment: improving (2) UTI (urinary tract infection) Status: Acute (3) DM2 (diabetes mellitus, type 2) Status: Chronic Qualifiers: Chronic kidney disease stage: stage 3 (moderate) (4) Elevated troponin I level Code(s): R74.8 - ABNORMAL LEVELS OF OTHER SERUM ENZYMES Status: Acute Comment: likely due to demand ischemia (5) HTN (hypertension) Code(s): I10 - ESSENTIAL (PRIMARY) HYPERTENSION Status: Chronic (6) Hypophosphatemia Code(s): E83.39 - OTHER DISORDERS OF PHOSPHORUS METABOLISM Status: Acute - Plan DVT proph w/SCDs Meropenem dced by Dr Oh -: Per Dr Oh Pt prob has E coli colonization rather than true infection -: Await placement -: Cardio signed off -: Cont to monitor, AM labs Review of Systems - Review of Systems Respiratory: negative: Cough, Dry, Shortness of Breath, Hemoptysis, SOB with Excertion, Pleuritic Pain, Sputum, Wheezing Cardiovascular: negative: chest pain, palpitations, orthopnea, paroxysmal nocturnal dyspnea, edema, light headedness, other - Medications/Allergies Allergies/Adverse Reactions: Allergies Allergy/AdvReac Type Severity Reaction Status Date / Time No Known Drug Allergies Allergy Verified 04/25/15 09:45 Medications: Current Medications Acetaminophen (Tylenol) 650 mg PO Q4H PRN PRN Reason: Headache/Fever or Pain Acetaminophen (Tylenol) 650 mg SD Q4H PRN PRN Reason: Headache/Fever or Pain Aspirin (Ecotrin) 81 mg PO DAILY [facility] Last Admin: 12/20/17 08:24 Dose: 81 mg Bisacodyl (Dulcolax) 10 mg PO DAILYPRN PRN PRN Reason: Constipation Last Admin: 12/20/17 08:24 Dose: 10 mg Dextrose/Water (Dextrose 50%) 25 gm SLOW IVP PRN PRN PRN Reason: Hypoglycemia Enoxaparin Sodium (Lovenox) 30 mg SC 0900 [facility] Last Admin: 12/20/17 08:24 Dose: 30 mg Glucagon (Glucagon) 1 mg IM PRN PRN PRN Reason: Hypoglycemia Hydralazine HCl (Apresoline) 10 mg SLOW IVP Q6H PRN PRN Reason: SBP > 180 Last Admin: 12/17/17 08:17 Dose: 10 mg Dextrose/Water (D5w) 1,000 mls @ 0 mls/hr IV .Q0M PRN; As Directed PRN Reason: Hypoglycemia Insulin Human Lispro (Humalog) 0 units SC .MILD SLIDING SCALE PRN PRN Reason: Mild Correctional Scale Last Admin: 12/19/17 17:56 Dose: 3 unit Losartan Potassium (Cozaar) 25 mg PO DAILY [facility] Last Admin: 12/20/17 08:24 Dose: 25 mg Mirtazapine (Remeron) 15 mg PO HS [facility] Last Admin: 12/20/17 19:36 Dose: 15 mg Phosphorus (Kphos Neutral) 250 mg PO TID-WM [facility] Last Admin: 12/20/17 16:36 Dose: 250 mg
[2017-12-21 04:01] LABS: #Eosinphils 0.2 thou/uL (0.0-0.7); #Lymphocytes 1.7 thou/uL (1.20-3.40); #Monocytes 0.4 thou/uL (0.11-0.59); #Neutrophils 2.1 thou/uL (1.40-6.50); %Basophils 0.6 % (0.0-1.0); %Eosinophils 4.4 % (0.0-10.0); %Lymphocytes 38.7 % (21.0-51.0); %Monocytes 8.7 % (0.0-10.0); %Neutrophils 47.5 % (42.0-75.0); Hemoglobin 11.2 g/dL (12.0-16.0); Mean Corpuscular HGB CONC 33.9 g/dL (32.0-36.0); Mean Corpuscular Volume 88.5 fL (78.0-98.0); Mean Platelet Volume 6.9 fL (7.4-10.4); Platelet Count 189 thou/uL (130-400); RBC Distribution Width 12.5 % (11.5-14.5); Red Blood Cell (RBC) Count 3.75 mill/uL (4.20-5.40); White Blood Cell (WBC) Count 4.5 thou/uL (4.8-10.8)
[2017-12-21 04:23] LABS: Albumin 3.5 g/dL (3.4-4.8); Anion Gap 12 mmol/L (10-20); BUN (Urea Nitrogen) 16 mg/dL (9.8-20.1); BUN/Creatinine Ratio 16.49; Calc. Creatinine Clearance 30 mL/min (70-130); Calcium 9.8 mg/dL (7.8-10.44); Carbon Dioxide 24 mmol/L (23-31); Chloride 107 mmol/L (98-107); Estimated GFR-MDRD 54; Glucose 153 mg/dL (83-110); Magnesium 1.7 mg/dL (1.6-2.6); Phosphorus 3.4 mg/dL (2.3-4.7); Potassium 3.9 mmol/L (3.5-5.1); Sodium 139 mmol/L (136-145)
[2017-12-21] MEDS: Losartan 25 MG TAB PO SCH (09:12)
[2017-12-21] MEDS: Enoxaparin Sodium 30 MG/0.3 ML SYRINGE SC SCH (09:12)
[2017-12-21] MEDS: Aspirin 81 mg Enteric Coated Tablet PO SCH (09:12)
[2017-12-21] MEDS: K-Phos Neutral 250 MG TAB PO SCH ×3 (09:12→16:00)
--- NOTE | 2017-12-21 11:24 | PDOC.PN ---
- Subjective Encounter Start Date: 12/21/17 Encounter Start Time: 11:22 Ms. Newell was seen today in follow-up of UTI. She does not have any complaints. She appears comfortable. - Objective MAR Reviewed: Yes Vital Signs & Weight: Vital Signs (12 hours) Temp Pulse Resp BP BP Pulse Ox 12/21/17 07:31 99 F 86 14 142/70 H 95 12/21/17 04:00 97.4 F L 81 14 155/67 H 96 Weight Weight 99 lb 8 oz I&O: 12/20/17 12/21/17 12/22/17 06:59 06:59 06:59 Intake Total 840 920 Balance 840 920 Result Diagrams: 12/21/17 03:24 12/21/17 03:24 Additional Labs: Accuchecks 12/21/17 12/20/17 12/20/17 06:20 20:52 16:48 POC Glucose 147 H 172 H 156 H Phys Exam - Physical Examination HEENT: PERRLA, sclera anicteric Respiratory: no wheezing, no rales, no rhonchi, clear to auscultation bilateral Cardiovascular: RRR, no significant murmur, no rub Gastrointestinal: soft, non-tender, positive bowel sounds Musculoskeletal: no edema Dx/Plan (1) Delirium with dementia Code(s): R41.0 - DISORIENTATION, UNSPECIFIED Status: Acute (2) UTI (urinary tract infection) Status: Acute (3) Diabetes Code(s): E11.9 - TYPE 2 DIABETES MELLITUS WITHOUT COMPLICATIONS Status: Chronic Qualifiers: Diabetes mellitus type: type 2 Diabetes mellitus complication status: with unspecified complications Comment: on accuchecks and insulin sliding scale (4) HTN (hypertension) Code(s): I10 - ESSENTIAL (PRIMARY) HYPERTENSION Status: Chronic - Plan * Delirium with Dementia- stable- she appears calm, and not agitated * UTI- this has been ruled out- she has colonization but no evidence of active infection * HTN- blood pressure has been a bit labile. * DM- blood glucose is stable * Awaiting placement
[2017-12-21] MEDS: Mirtazapine 15 MG TAB PO SCH (20:07)
[2017-12-21] MEDS: HumaLOG 300 UNITS/3 ML VIAL SC PRN (20:19)
--- NOTE | 2017-12-22 10:59 | PDOC.PN ---
- Subjective Encounter Start Date: 12/22/17 Encounter Start Time: 10:58 Ms. Newell was seen today in follow-up of altered mental status. She appears comfortable/ No complaints voiced by staff. - Objective MAR Reviewed: Yes Vital Signs & Weight: Vital Signs (12 hours) Temp Pulse Resp BP Pulse Ox 12/22/17 07:29 98.7 F 82 16 153/69 H 94 L 12/22/17 04:06 97.8 F 80 16 132/69 97 Weight Weight 99 lb 8 oz I&O: 12/21/17 12/22/17 12/23/17 06:59 06:59 06:59 Intake Total 920 700 Balance 920 700 Result Diagrams: 12/21/17 03:24 12/21/17 03:24 Additional Labs: Accuchecks 12/22/17 12/21/17 12/21/17 06:05 23:46 20:18 POC Glucose 155 H 179 H 234 H 12/21/17 12/21/17 17:01 12:12 POC Glucose 224 H 165 H Phys Exam - Physical Examination HEENT: PERRLA Respiratory: no wheezing, no rales, no rhonchi, clear to auscultation bilateral Cardiovascular: RRR, no significant murmur Gastrointestinal: soft, non-tender, positive bowel sounds Musculoskeletal: no edema, pulses present Dx/Plan (1) Delirium with dementia Code(s): R41.0 - DISORIENTATION, UNSPECIFIED Status: Acute (2) UTI (urinary tract infection) Status: Ruled-out (3) Diabetes Code(s): E11.9 - TYPE 2 DIABETES MELLITUS WITHOUT COMPLICATIONS Status: Chronic Qualifiers: Diabetes mellitus type: type 2 Diabetes mellitus complication status: with unspecified complications Comment: on accuchecks and insulin sliding scale (4) HTN (hypertension) Code(s): I10 - ESSENTIAL (PRIMARY) HYPERTENSION Status: Chronic - Plan * Delirium in Dementia- improved * UTI- was ruled out * Stable for discharge to the nursing facility.
[2017-12-22] MEDS: Losartan 25 MG TAB PO SCH (13:00)
[2017-12-22] MEDS: Aspirin 81 mg Enteric Coated Tablet PO SCH (13:01)
[2017-12-22] MEDS: Enoxaparin Sodium 30 MG/0.3 ML SYRINGE SC SCH (13:01)
[2017-12-22] MEDS: K-Phos Neutral 250 MG TAB PO SCH ×2 (13:03)
[2017-12-22 13:32] VITALS: BP 128/59; TEMP 99.3
--- NOTE | 2017-12-22 22:06 | DIS ---
DATE OF ADMISSION: 12/15/2017 DATE OF DISCHARGE: 12/22/2017 PRIMARY CARE PHYSICIAN: Kinga Torres NP DISCHARGE DISPOSITION: To the [facility]. DISCHARGE DIAGNOSES: 1. Delirium and dementia, resolved. 2. Coronary artery disease. 3. Diabetes mellitus type 2. 4. Hypertension. 5. Glaucoma. 6. Dyslipidemia. 7. Dementia. DISCHARGE MEDICATIONS: Metformin 500 mg daily, Remeron 15 mg at bedtime, losartan 25 mg daily, aspir in 81 mg a day. CODE STATUS: DO NOT INTUBATE. ALLERGIES: No known drug allergies. HOSPITAL COURSE: Ms. Newell is a pleasant 87-year-old female who has a history of fairly advanced d ementia. She was admitted after it was noted that she seemed more disruptive and her behavior had ch anged. She had not been taking medications and found pills hidden under her bed. They were concerne d that she may have some type of infection. She did have some findings suggestive of a urinary tract infection; however, after being evaluated by the Infectious Disease specialist, it was felt that thi s was more asymptomatic bacteriuria than related to her mental status changes. She had been placed o n empiric antibiotics, but these were discontinued and she will be discharged back to the [facility]. She is being discharged in stable condition. She is afebrile. O2 sats are 94% on ro om air. She was awake and alert and had not had any behavioral changes noted at least while in the h ospital here.
== END 2017-12-22 14:56 | DRG 71 ==
LOC: ERS 11:59 → 2NO 16:21 → OBSVTOIN 12-16 09:07
PROVIDERS: ADMIT Internal Medicine; ATTEND Internal Medicine
DX: G93.40 Encephalopathy, unspecified (principal); F05 Delirium due to known physiological condition; I24.8 Other forms of acute ischemic heart disease; I25.10 Atherosclerotic heart disease of native coronary artery without angina pectoris; H40.9 Unspecified glaucoma; E78.5 Hyperlipidemia, unspecified; F03.90 Unspecified dementia, unspecified severity, without behavioral disturbance, psychotic disturbance, mood disturbance, and anxiety; Z66 Do not resuscitate; I12.9 Hypertensive chronic kidney disease with stage 1 through stage 4 chronic kidney disease, or unspecified chronic kidney disease; E11.22 Type 2 diabetes mellitus with diabetic chronic kidney disease; N18.3 Chronic kidney disease, stage 3 (moderate); E83.39 Other disorders of phosphorus metabolism; Z87.440 Personal history of urinary (tract) infections; Z95.1 Presence of aortocoronary bypass graft; E78.00 Pure hypercholesterolemia, unspecified; Z79.84 Long term (current) use of oral hypoglycemic drugs; Z79.899 Other long term (current) drug therapy; I35.0 Nonrheumatic aortic (valve) stenosis; E86.0 Dehydration; N28.9 Disorder of kidney and ureter, unspecified
CPT/HCPCS: 36415; 36416; 51701; 80048; 80053; 80069; 83735; 84100; 85025; 87040; 87077; 87086; 87186; 93005; A4353; G8978-GP-CM; G8979-GP-CK; G8996-GN-CJ; G8997-GN-CI; J0360; J1650; J2185